=== PATIENT | female | born 1935 | race Caucasian/White ===

== ENCOUNTER 2017-07-29 11:24 | Day surgery (SDC) | payer MEDICARE, OTHER ==
[~2017-07-29 11:24] MED LIST: Lactated Ringers 1,000 ML IV SCH; Sodium Chloride 0.9% 10 ML Syringe FLUSH PRN; Sodium Chloride 0.9% 2.5 ML Syringe FLUSH PRN
--- NOTE | 2017-07-29 12:05 | PCM.PREANE ---
Preanesthetic Assessment - Anesthesia/Transfusion/Family Hx Anesthesia History: Prior Anesthesia Without Reaction Family History of Anesthesia Reaction: No Transfusion History: No Prior Transfusion(s) Intubation History: Unknown - Review of Systems General: No Symptoms Pulmonary: No Symptoms Cardiovascular: No Symptoms Gastrointestinal: Difficulty Swallowing Neurological: No Symptoms Other: Reports: None - Physical Assessment Height: 1.55 m Weight: 90.718 kg ASA Class: 3 Mental Status: Alert & Oriented x3 Airway Class: Mallampati = 2 Dentition: Reports: Stoneridge(s) (multiple on the backteeth) Thyro-Mental Finger Breadths: 3 Mouth Opening Finger Breadths: 3 ROM/Head Extension: Limited/Partial Lungs: Clear to Auscultation, Normal Respiratory Effort Cardiovascular: Regular Rate, Regular Rhythm - Allergies Allergies/Adverse Reactions: Allergies Allergy/AdvReac Type Severity Reaction Status Date / Time Sulfa (Sulfonamide Allergy Hives Verified 07/26/17 09:42 Antibiotics) - Blood Blood Available: No - Anesthesia Plan Pre-Op Medication Ordered: None - Acknowledgements Anesthesia Type Planned: MAC Pt an Appropriate Candidate for the Planned Anesthesia: Yes Alternatives and Risks of Anesthesia Discussed w Pt/Guardian: Yes Pt/Guardian Understands and Agrees with Anesthesia Plan: Yes PreAnesthesia Questionnaire HEENT History: Reports: None Cardiovascular History: Reports: Afib, High Cholesterol, Hypertension, SOB on Exertion, Stents (x1 4 years ago) Respiratory History: Reports: SOB Other Respiratory History: SOB at times Gastrointestinal History: Reports: GERD Genitourinary History: Reports: None 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: Musculoskeletal History: Reports: Back Pain, Chronic, Osteoarthritis, RA Neurological History: Reports: None Psychiatric History: Reports: Depression Endocrine/Metabolic History: Reports: Obesity/BMI 30+ Dermatologic History: Reports: None - Past Surgical History Head Surgeries/Procedures: Reports: None HEENT Surgical History: Reports: Cataract Surgery Cardiovascular Surgical History: Reports: Coronary Artery Stent Female Surgical History: Reports: Tubal Ligation Other Female Surgeries/Procedures: hx rectocele repair Musculoskeletal Surgical History: Reports: Carpal Tunnel, Knee Replacement Other Musculoskeletal Surgeries/Procedures:: hx rt knee replacement Dermatological Surgical History: Reports: Skin Biopsy - SUBSTANCE USE Smoking Status *Q: Former Smoker Tobacco Use Within Last Twelve Months: Cigarettes Second Hand Smoke Exposure: No Days Per Week of Alcohol Use: 0 Recreational Drug Use History: No - HOME MEDS Home Medications: Home Meds Citalopram [Citalopram Hbr] 40 mg PO DAILY 05/29/14 [History] Methotrexate 6 tab PO WEEKLY 05/29/14 [History] Sotalol [Betapace] 120 mg PO DAILY 05/29/14 [History] Spironolactone 50 mg PO DAILY 05/29/14 [History] Aspirin [Lo-Dose Aspirin EC] 81 mg PO DAILY 07/26/17 [History] Calcium Carbonate/Vitamin D3 [Calcium 500 + Vit D Caplet] 1 tab PO DAILY [History] Folic Acid 800 mcg PO DAILY 07/26/17 [History] Furosemide 20 mg PO DAILY 07/26/17 [History] Halobetasol [Halobetasol Propionate] 1 applic TOP BEDTIME PRN 07/26/17 [History] L.acidoph,Paracasei, B.lactis [Probiotic] 1 tab PO DAILY 07/26/17 [History] Losartan [Cozaar] 50 mg PO DAILY 07/26/17 [History] Omeprazole 20 mg PO ASDIRECTED PRN 07/26/17 [History] Ubidecarenone [Coq-10] 100 mg PO DAILY 07/26/17 [History] atorvaSTATin Calcium [Atorvastatin Calcium] 10 mg PO DAILY 07/26/17 [History] - CURRENT (IN HOUSE) MEDS Current Meds: Current Medications Lactated Ringer's (Ringers, Lactated) 1,000 mls @ 125 mls/hr IV ASDIRECTED ANTONIETA Sodium Chloride (Saline Flush) 10 ml FLUSH ASDIRECTED PRN PRN Reason: Keep Vein Open Sodium Chloride (Saline Flush) 2.5 ml FLUSH ASDIRECTED PRN PRN Reason: Keep Vein Open
[2017-07-29] MEDS ORDERED: Propofol 200 MG/20 ML SDV ONE (12:44)
[2017-07-29] MEDS ORDERED: Benzocaine 20% Topical Spray UD MUCMEM ONE (12:44)
[2017-07-29] MEDS ORDERED: fentaNYL 100 MCG/2 ML SDV ONE (13:34)
--- NOTE | 2017-07-29 14:30 | PCM48HPAN ---
Post Anesthesia Note - EVALUATION WITHIN 48HRS OF ANESTHETIC Vital Signs in Normal Range: Yes Patient Participated in Evaluation: Yes Respiratory Function Stable: Yes Airway Patent: Yes Cardiovascular Function Stable: Yes Hydration Status Stable: Yes Pain Control Satisfactory: Yes Nausea and Vomiting Control Satisfactory: Yes Mental Status Recovered: Yes Resp Rate: 15 - COMMENTS/OBSERVATIONS Free Text/Narrative:: no anesthesia problems
--- NOTE | 2017-07-29 15:24 | PCM.OPNOTE ---
- General Post-Op/Procedure Note Date of Surgery/Procedure: 07/29/17 Operative Procedure(s): Diagnostic EGD Findings: Pyloric stenosis, moderate sized hiatal hernia Pre Op Diagnosis: Hiatal hernia, reflux Post-Op Diagnosis: HIatal hernia, pyloric stenosis [place] [facility] [place]geon: Linda Rosas Condition: Good Free Text/Narrative:: Intake & Output 07/29/17 07/29/17 07/29/17 06:59 14:59 22:59 Intake Total 750 Balance 750
[2017-07-29 15:28] VITALS: BP 111/71
--- NOTE | 2017-07-29 21:48 | OR ---
SURGEON: DORCAS BROWN MD DATE OF PROCEDURE: 07/29/2017 PREOPERATIVE DIAGNOSIS: Reflux, hiatal hernia. POSTOPERATIVE DIAGNOSES: 1. Moderate-sized hiatal hernia. 2. Gastric reflux. 3. Pyloric stenosis. ANESTHESIA: MAC. INSTRUMENT USED: Olympus endoscope. EXTENT OF EXAM: To the pylorus. PREPARATION: Good. LIMITATIONS: Difficulty insufflating the stomach and unable to pass the scope past the pylorus. INDICATIONS: The patient is an 82-year-old female with a longstanding history of reflux. She has taken omeprazole for many years and would like to stop taking this. She is here to be evaluated further to see if there is anyway she can stop her medication. She also feels she has a sensation of dysphagia. The patient underwent a preoperative esophagram. This revealed a mild to moderate-sized hiatal hernia as well as mild presbyesophagus. The patient and I discussed the EGD procedure as well as expected perioperative course. We discussed the risks including bleeding or perforation. The patient verbalized understanding and wishes to proceed. PROCEDURE IN DETAIL: The patient was brought into the endoscopy suite and placed in a beach chair position. A time-out was completed verifying the patient's name, age, date of , allergies, and procedure to be performed. Monitored anesthesia care was induced and a bite block was placed in the patient's mouth. Continuous oxygen was provided via nasal cannula throughout the procedure. After adequate sedation was achieved, a well lubricated endoscope was placed in the patient's mouth and advanced under direct visualization of the esophagus. Upon entering the esophagus, I did not note a clear transition from esophageal mucosa to gastric tissue. The scope was advanced under direct visualization until I reached a narrow stricture. This appeared to be the pylorus. I confirmed that the insufflation was on. I then manually insufflated the stomach. The stomach was able to be distended and I was able to clearly identify the pylorus. Despite multiple attempts, I was unable to pass my endoscope past the pylorus. The pylorus itself appeared normal with no evidence of inflammation, scarring, or ulceration. I retroflexed my scope within the antrum of the stomach and noted the patient to have a moderate to large size hiatal hernia. The patient had a large amount of coughing during the case and it was difficult to keep the stomach insufflated as she was losing some of the air through reflux. The scope was straightened out and fully withdrawn while examining the color, texture, anatomy, and integrity of the mucosa of the stomach and esophagus. The gastric mucosa had no evidence of inflammation or ulceration. The scope was then brought up into the chest and a photograph was taken of the stomach that was up in the chest. This appeared normal with no evidence of any ulceration. At about 40 cm from the teeth, the gastroesophageal junction was noted, a photograph was taken. The distal esophageal mucosa appeared normal with no evidence of esophagitis. The remainder of the esophagus was free of pathology. The scope was then removed and the procedure terminated. The patient tolerated the procedure well and was taken to PACU in stable condition. ENDOSCOPIC DIAGNOSES: 1. Gastroesophageal reflux disease. 2. Moderate sized hiatal hernia. 3. Mild pyloric stenosis. RECOMMENDATIONS: We will follow up with the patient in clinic in 2 weeks to discuss her treatment options. WILFRED PALOMINO /[id number]
== END 2017-07-29 15:00 | disposition home or self-care (01) ==
LOC: MW.SDS 11:24
PROVIDERS: ATTEND Surgery
DX: K21.9 Gastro-esophageal reflux disease without esophagitis (principal); K44.9 Diaphragmatic hernia without obstruction or gangrene; K31.1 Adult hypertrophic pyloric stenosis; I25.10 Atherosclerotic heart disease of native coronary artery without angina pectoris; I48.0 Paroxysmal atrial fibrillation; E66.9 Obesity, unspecified; E78.5 Hyperlipidemia, unspecified; M34.9 Systemic sclerosis, unspecified; M06.9 Rheumatoid arthritis, unspecified; M85.80 Other specified disorders of bone density and structure, unspecified site; F32.9 Major depressive disorder, single episode, unspecified; Z79.82 Long term (current) use of aspirin; Z79.899 Other long term (current) drug therapy; Z98.49 Cataract extraction status, unspecified eye; Z96.651 Presence of right artificial knee joint; Z98.51 Tubal ligation status; Z98.890 Other specified postprocedural states; Z88.2 Allergy status to sulfonamides; Z87.891 Personal history of nicotine dependence
CPT/HCPCS: 43235; A9270; J3010; J7120; J2704

== ENCOUNTER 2018-12-08 13:17 | Emergency (ER) | payer MEDICARE, OTHER ==
[2018-12-08] MEDS ORDERED: Sodium Chloride 0.9% 2.5 ML Syringe FLUSH PRN (13:21)
[2018-12-08] MEDS ORDERED: Sodium Chloride 0.9% 10 ML Syringe FLUSH PRN (13:21)
--- NOTE | 2018-12-08 13:43 | EDM.PDOC ---
ED HPI GENERAL MEDICAL PROBLEM - General Chief Complaint: General Stated Complaint: CHEST PAIN Time Seen by Provider: 12/08/18 13:30 Source of Information: Reports: Patient History Limitations: Reports: No Limitations - History of Present Illness INITIAL COMMENTS - FREE TEXT/NARRATIVE: HISTORY AND PHYSICAL: History of present illness: Patient is an 83-year-old female presents to the ED with complaint of chest and back pain. She states she has had the pain for about 4 days, states is better today but when she was at her primary care's office they advised her to come to the ED. She states it does not hurt just sitting here but when she moves certain ways and coughs she has pain in the middle of her chest and in her back and left shoulder. She states she does feel like she is a little short of breath but she's been having nasal drainage and postnasal drip and attributed to this. She denies any worsening cough, fevers, chills, nausea, vomiting, diarrhea, abdominal pain. History significant for CAD with stent placed 8 years ago. Review of systems: As per history of present illness and below otherwise all systems reviewed and negative. Past medical history: As per history of present illness and as reviewed below otherwise noncontributory. Surgical history: As per history of present illness and as reviewed below otherwise noncontributory. Social history: No reported history of drug or alcohol abuse. Family history: As per history of present illness and as reviewed below otherwise noncontributory. Physical exam: General: Patient sitting comfortably in no acute distress and nontoxic appearing HEENT: Atraumatic, normocephalic, pupils reactive, negative for conjunctival pallor or scleral icterus, mucous membranes moist, throat clear, neck supple, nontender, trachea midline. No meningeal signs. Lungs: Clear to auscultation, breath sounds equal bilaterally, chest nontender. Heart: S1S2, regular, negative for clicks, rubs, or overt murmur. Abdomen: Soft, nondistended, nontender. Negative for masses or hepatosplenomegaly. Negative for costovertebral tenderness. No rigidity, rebound , guarding. Pelvis: Stable nontender. Genitourinary: Deferred. Rectal: Deferred. Extremities: Atraumatic, negative for cords or calf pain. Neurovascular unremarkable. Neuro: Awake, alert, oriented. Cranial nerves II through XII unremarkable. Cerebellum unremarkable. Motor and sensory unremarkable throughout. Exam nonfocal. Notes: I had a lengthy discussion with patient about my recommendations to be admitted for observation to rule out ACS with cardiac monitoring and serial troponins especially given her age and cardiac history. Patient declines at this time and understands the risks of this including . Diagnostics: CBC, CMP, troponins, PT/INR, EKG, CXR, UA Therapeutics: [] Prescriptions: Impression: Atypical chest pain Plan: Follow up with primary care provider Return to ED as needed as discussed Definitive disposition and diagnosis as appropriate pending reevaluation and review of above. - Related Data Allergies Allergy/AdvReac Type Severity Reaction Status Date / Time Sulfa (Sulfonamide Allergy Hives Verified 12/08/18 13:29 Antibiotics) Home Meds: Home Meds Citalopram [Citalopram HBr] 40 mg PO DAILY 05/29/14 [History] Methotrexate 6 tab PO WEEKLY 05/29/14 [History] Sotalol [Betapace] 120 mg PO DAILY 05/29/14 [History] Spironolactone 50 mg PO DAILY 05/29/14 [History] Aspirin [Lo-Dose Aspirin EC] 81 mg PO DAILY 07/26/17 [History] Folic Acid 800 mcg PO DAILY 07/26/17 [History] Furosemide 20 mg PO DAILY 07/26/17 [History] Halobetasol [Halobetasol Propionate] 1 applic TOP BEDTIME PRN 07/26/17 [History] Losartan [Cozaar] 25 mg PO DAILY 07/26/17 [History] Omeprazole 20 mg PO ASDIRECTED PRN 07/26/17 [History] Ubidecarenone [Coq-10] 100 mg PO DAILY 07/26/17 [History] atorvaSTATin Calcium [Atorvastatin Calcium] 10 mg PO DAILY 07/26/17 [History] Past Medical History HEENT History: Reports: None Cardiovascular History: Reports: Afib, High Cholesterol, Hypertension, SOB on Exertion, Stents Respiratory History: Reports: SOB Other Respiratory History: SOB at times Gastrointestinal History: Reports: GERD Genitourinary History: Reports: 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: Musculoskeletal History: Reports: Back Pain, Chronic, Osteoarthritis, RA Neurological History: Reports: None Psychiatric History: Reports: Depression Endocrine/Metabolic History: Reports: Obesity/BMI 30+ Dermatologic History: Reports: None - Past Surgical History Head Surgeries/Procedures: Reports: None HEENT Surgical History: Reports: Cataract Surgery Cardiovascular Surgical History: Reports: Coronary Artery Stent Female Surgical History: Reports: Tubal Ligation Other Female Surgeries/Procedures: hx rectocele repair Musculoskeletal Surgical History: Reports: Carpal Tunnel, Knee Replacement Other Musculoskeletal Surgeries/Procedures:: hx rt knee replacement Dermatological Surgical History: Reports: Skin Biopsy Social & Family History - Family History Family Medical History: Noncontributory - Tobacco Use Smoking Status *Q: Never Smoker - Recreational Drug Use Recreational Drug Use: No ED ROS GENERAL - Review of Systems Review Of Systems: ROS reveals no pertinent complaints other than HPI. ED EXAM, GENERAL - Physical Exam Exam: See Below (see dictation) Course - Vital Signs Last Recorded V/S: Last Vital Signs Temp 96.0 F 12/08/18 13:26 Pulse 69 12/08/18 13:26 Resp 18 12/08/18 13:26 BP 146/58 H 12/08/18 13:26 Pulse Ox 94 L 12/08/18 13:26 - Orders/Labs/Meds Orders: Active Orders 24 hr Category Date Time Status Cardiac Monitoring [RC] . DIRECTED Care 12/08/18 13:21 Active EKG Documentation Completion [RC] STAT Care 12/08/18 13:21 Active Sodium Chloride 0.9% [Saline Flush] Med 12/08/18 13:21 Active 10 ml FLUSH ASDIRECTED PRN Sodium Chloride 0.9% [Saline Flush] Med 12/08/18 13:21 Active 2.5 ml FLUSH ASDIRECTED PRN Saline Lock Insert [OM.PC] Stat Oth 12/08/18 13:21 Ordered Medication Orders Sodium Chloride (Saline Flush) 10 ml FLUSH ASDIRECTED PRN PRN Reason: Keep Vein Open Sodium Chloride (Saline Flush) 2.5 ml FLUSH ASDIRECTED PRN PRN Reason: Keep Vein Open Labs: Laboratory Tests 12/08/18 12/08/18 12/08/18 Range/Units 13:34 13:34 13:34 WBC 6.26 (4.0-11.0) K/uL RBC 3.72 L (4.30-5.90) M/uL Hgb 12.1 (12.0-16.0) g/dL Hct 36.4 (36.0-46.0) % MCV 97.8 (80.0-98.0) fL MCH 32.5 H (27.0-32.0) pg MCHC 33.2 (31.0-37.0) g/dL RDW Std Deviation 48.6 (28.0-62.0) fl RDW Coeff of Maryann 14 (11.0-15.0) % Plt Count 232 (150-400) K/uL MPV 9.10 (7.40-12.00) fL Neut % (Auto) 56.4 (48.0-80.0) % Lymph % (Auto) 31.3 (16.0-40.0) % Dickinson % (Auto) 8.3 (0.0-15.0) % Eos % (Auto) 3.0 (0.0-7.0) % Baso % (Auto) 1.0 (0.0-1.5) % Neut # (Auto) 3.5 (1.4-5.7) K/uL Lymph # (Auto) 2.0 (0.6-2.4) K/uL Dickinson # (Auto) 0.5 (0.0-0.8) K/uL Eos # (Auto) 0.2 (0.0-0.7) K/uL Baso # (Auto) 0.1 (0.0-0.1) K/uL Nucleated RBC % 0.0 /100WBC Nucleated RBCs # 0 K/uL INR 0.97 Sodium 139 (136-145) mmol/L Potassium 3.8 (3.5-5.1) mmol/L Chloride 105 (98-107) mmol/L Carbon Dioxide 24.6 (21.0-32.0) mmol/L BUN 21 H (7.0-18.0) mg/dL Creatinine 0.8 (0.6-1.0) mg/dL Est Cr Clr Drug Dosing 40.91 mL/min Estimated GFR (MDRD) > 60.0 ml/min Glucose 114 H (74-106) mg/dL Calcium 9.3 (8.5-10.1) mg/dL Total Bilirubin 0.7 (0.2-1.0) mg/dL AST 20 (15-37) IU/L ALT 20 (14-63) IU/L Alkaline Phosphatase 62 (46-116) U/L Troponin I < 0.050 (0.000-0.056) ng/mL Total Protein 6.5 (6.4-8.2) g/dL Albumin 3.4 (3.4-5.0) g/dL Globulin 3.1 (2.6-4.0) g/dL Albumin/Globulin Ratio 1.1 (0.9-1.6) Urine Color Urine Appearance Urine pH (5.0-8.0) Ur Specific Jewell (1.001-1.035) Urine Protein (NEGATIVE) mg/dL Urine Glucose (UA) (NEGATIVE) mg/dL Urine Ketones (NEGATIVE) mg/dL Urine Occult Blood (NEGATIVE) Urine Nitrite (NEGATIVE) Urine Bilirubin (NEGATIVE) Urine Urobilinogen (<2.0) EU/dL Ur Leukocyte Esterase (NEGATIVE) Urine RBC (0-2/HPF) Urine WBC (0-5/HPF) Ur Epithelial Cells (NONE-FEW) Urine Bacteria (NEGATIVE) 12/08/18 Range/Units 14:30 WBC (4.0-11.0) K/uL RBC (4.30-5.90) M/uL Hgb (12.0-16.0) g/dL Hct (36.0-46.0) % MCV (80.0-98.0) fL MCH (27.0-32.0) pg MCHC (31.0-37.0) g/dL RDW Std Deviation (28.0-62.0) fl RDW Coeff of Maryann (11.0-15.0) % Plt Count (150-400) K/uL MPV (7.40-12.00) fL Neut % (Auto) (48.0-80.0) % Lymph % (Auto) (16.0-40.0) % Dickinson % (Auto) (0.0-15.0) % Eos % (Auto) (0.0-7.0) % Baso % (Auto) (0.0-1.5) % Neut # (Auto) (1.4-5.7) K/uL Lymph # (Auto) (0.6-2.4) K/uL Dickinson # (Auto) (0.0-0.8) K/uL Eos # (Auto) (0.0-0.7) K/uL Baso # (Auto) (0.0-0.1) K/uL Nucleated RBC % /100WBC Nucleated RBCs # K/uL INR Sodium (136-145) mmol/L Potassium (3.5-5.1) mmol/L Chloride (98-107) mmol/L Carbon Dioxide (21.0-32.0) mmol/L BUN (7.0-18.0) mg/dL Creatinine (0.6-1.0) mg/dL Est Cr Clr Drug Dosing mL/min Estimated GFR (MDRD) ml/min Glucose (74-106) mg/dL Calcium (8.5-10.1) mg/dL Total Bilirubin (0.2-1.0) mg/dL AST (15-37) IU/L ALT (14-63) IU/L Alkaline Phosphatase (46-116) U/L Troponin I (0.000-0.056) ng/mL Total Protein (6.4-8.2) g/dL Albumin (3.4-5.0) g/dL Globulin (2.6-4.0) g/dL Albumin/Globulin Ratio (0.9-1.6) Urine Color YELLOW Urine Appearance CLEAR Urine pH 6.5 (5.0-8.0) Ur Specific Jewell <= 1.005 (1.001-1.035) Urine Protein NEGATIVE (NEGATIVE) mg/dL Urine Glucose (UA) NEGATIVE (NEGATIVE) mg/dL Urine Ketones NEGATIVE (NEGATIVE) mg/dL Urine Occult Blood SMALL H (NEGATIVE) Urine Nitrite NEGATIVE (NEGATIVE) Urine Bilirubin NEGATIVE (NEGATIVE) Urine Urobilinogen 0.2 (<2.0) EU/dL Ur Leukocyte Esterase SMALL H (NEGATIVE) Urine RBC 3-5 (0-2/HPF) Urine WBC 3-5 (0-5/HPF) Ur Epithelial Cells OCCASIONAL (NONE-FEW) Urine Bacteria FEW (NEGATIVE) Meds: Medications Generic Name Dose Route Start Last Admin Trade Name Freq PRN Reason Stop Dose Admin Sodium Chloride 10 ml 12/08/18 13:21 Saline Flush FLUSH ASDIRECTED PRN Keep Vein Open Sodium Chloride 2.5 ml 12/08/18 13:21 Saline Flush FLUSH ASDIRECTED PRN Keep Vein Open Departure - Departure Time of Disposition: 15:09 Disposition: Home, Self-Care 01 Condition: Good Clinical Impression: Atypical chest pain - Discharge Information Referrals: Lokesh Johnson MD [Primary Care Provider] - Forms: ED Department Discharge Additional Instructions: The following information is given to patients seen in the emergency department who are being discharged to home. This information is to outline your options for follow-up care. We provide all patients seen in our emergency department with a follow-up referral. The need for follow-up, as well as the timing and circumstances, are variable depending upon the specifics of your emergency department visit. If you don't have a primary care physician on staff, we will provide you with a referral. We always advise you to contact your personal physician following an emergency department visit to inform them of the circumstance of the visit and for follow-up with them and/or the need for any referrals to a consulting specialist. The emergency department will also refer you to a specialist when appropriate. This referral assures that you have the opportunity for follow-up care with a specialist. All of these measure are taken in an effort to provide you with optimal care, which includes your follow-up. Under all circumstances we always encourage you to contact your private physician who remains a resource for coordinating your care. When calling for follow-up care, please make the office aware that this follow-up is from your recent emergency room visit. If for any reason you are refused follow-up, please contact the [facility] Emergency Department at and asked to speak to the emergency department charge nurse. [facility] [address] [place] [id number] [address] Follow up with primary care provider Return to ED as needed as discussed - My Orders Last 24 Hours: My Active Orders 12/08/18 13:21 Cardiac Monitoring [RC] . DIRECTED EKG Documentation Completion [RC] STAT Sodium Chloride 0.9% [Saline Flush] 10 ml FLUSH ASDIRECTED PRN Sodium Chloride 0.9% [Saline Flush] 2.5 ml FLUSH ASDIRECTED PRN Saline Lock Insert [OM.PC] Stat - Assessment/Plan Last 24 Hours: My Active Orders 12/08/18 13:21 Cardiac Monitoring [RC] . DIRECTED EKG Documentation Completion [RC] STAT Sodium Chloride 0.9% [Saline Flush] 10 ml FLUSH ASDIRECTED PRN Sodium Chloride 0.9% [Saline Flush] 2.5 ml FLUSH ASDIRECTED PRN Saline Lock Insert [OM.PC] Stat
[2018-12-08 14:11] LABS: CHLORIDE,CL 105 mmol/L (98-107); SODIUM,NA 139 mmol/L (136-145)
--- NOTE | 2018-12-08 14:37 | CR ---
INDICATION: Chest pain. TECHNIQUE: PA and lateral chest x-ray. IMPRESSION: Chest x-ray 12/04/2015. FINDINGS: Suggestion of increased soft tissue density in the left lower and midline chest was present previously but is more apparent today. This could be a hiatal hernia but is not specific. Mild elevation in eventration right hemidiaphragm medially stable. The heart is somewhat globular in shape and is mildly enlarged. No focal dense infiltrate or consolidation in either lung. The uppermost aspect of the chest is not included on this exam. Chest otherwise unremarkable. Dictated by Jr Martinez MD @ Dec 08 2018 2:35PM Signed by Dr. Jr Martinez @ Dec 08 2018 2:35PM
[2018-12-08 15:21] VITALS: BP 135/54
== END 2018-12-08 15:21 | disposition home or self-care (01) ==
LOC: MW.ED 13:17
DX: R07.89 Other chest pain (principal); E78.00 Pure hypercholesterolemia, unspecified; I48.91 Unspecified atrial fibrillation; F32.9 Major depressive disorder, single episode, unspecified; Z88.2 Allergy status to sulfonamides; Z79.899 Other long term (current) drug therapy; Z79.82 Long term (current) use of aspirin
CPT/HCPCS: 36415; 71045; 71045-26; 80053; 81001; 84484; 85025; 85610; 93005; 99284-25

== ENCOUNTER 2020-11-30 11:20 | Emergency (ER) | payer MEDICARE, OTHER ==
--- NOTE | 2020-11-30 12:46 | EDM.PDOC ---
ED HPI GENERAL MEDICAL PROBLEM - General Chief Complaint: General Stated Complaint: COLD Time Seen by Provider: 11/30/20 12:10 Source of Information: Reports: Patient History Limitations: Reports: No Limitations - History of Present Illness INITIAL COMMENTS - FREE TEXT/NARRATIVE: HISTORY AND PHYSICAL: History of present illness: Patient is an 85-year-old female who presents emergency room today with concern of possible eye infection and sinus infection. Patient states that she has been having sinus pain and pressure for the last 10 days. Patient states that she was seen when her symptoms were started and had tested negative for Covid. Patient states that she does not want any lab work or diagnostics in the emergency room and would just like antibiotics and to be quickly discharged. Patient states she began having grouping of her eyes feeling like her sinuses were backing up into her eyes so came to the emergency room today for evaluation. Patient states that at times, her sinuses do drip down the back of her throat which causes her to cough but states that she does not feel as if she has a cough at baseline. Patient denies any other symptoms or concerns. Patient denies fever, chills, chest pain, shortness of breath, or cough. Denies headache, neck stiff ness, change in vision, syncope, or near syncope. Denies nausea, vomiting, abdominal pain, diarrhea, constipation, or dysuria. Has not noted any blood in urine or stool. Patient has been eating and drinking appropriately. Review of systems: As per history of present illness and below otherwise all systems reviewed and negative. Past medical history: As per history of present illness and as reviewed below otherwise noncontributory. Surgical history: As per history of present illness and as reviewed below otherwise noncontributory. Social history: See social history for further information Family history: As per history of present illness and as reviewed below otherwise noncontribut ory. Physical exam: General: Patient is alert, oriented, and in no acute distress. Patient sitting comfortably on exam table. Vitals stable and reviewed by me HEENT: Bilateral nasal congestion noted with pain to palpation of the maxillary sinuses bilaterally. Visual acuity intact. EOMS intact without pain or difficulty. Negative for corneal opacity, hyphema, or hypopyon. Patient does have some crusting of her bilateral eyelids with mild injection of bilateral sclera. Otherwise, atraumatic, normocephalic, pupils equal and reactive bilaterally, negative for conjunctival pallor or scleral icterus, mucous membranes moist, TMs normal bilaterally, throat clear, neck supple, nontender, trachea midline. No drooling or trismus noted. No meningeal signs. No hot potato voice noted. Lungs: Clear to auscultation, breath sounds equal bilaterally, chest nontender. Heart: S1S2, regular rate and rhythm without overt murmur Abdomen: Soft, nondistended, nontender. Negative for masses or hepatosplen omegaly. Negative for costovertebral tenderness. Pelvis: Stable nontender. Genitourinary: Deferred. Rectal: Deferred. Skin: Intact, warm, dry. No lesions or rashes noted. Extremities: Atraumatic, negative for cords or calf pain. Neurovascular unremarkable. Neuro: Awake, alert, oriented. Cranial nerves II through XII unremarkable. Cerebellum unremarkable. Motor and sensory unremarkable throughout. Exam nonfocal. Notes: Patient is an 85-year-old female who presents emergency room secondary to possible sinus infection as she has had a stuffy/runny nose for 10 days and eye infection today. Upon arrival to the ED, patient is vitally stable and well- appearing on exam. Patient does note to have bilateral bacterial conjunctivitis and pain to palpation of the maxillary sinuses on exam with bilateral nasal congestion. I did offer to obtain basic lab work and a chest x-ray, however, patient declines. All risks versus benefits discussed with patient and expresses understanding. will treat patient for acute maxillary sinusitis and bacterial conjunctivitis. Given patient's severe interaction with methotrexate, will prescribe doxycycline rather than Augmentin. Strict return precautions thoroughly discussed with patient. Discussed importance for follow-up with a primary care provider. Voices understanding and is agreeable to plan of care. Denies any further questions or concerns at this time. Diagnostics: I did offer basic lab work and chest x-ray but patient declines. All risks versus benefits discussed with patient and expresses understanding. Therapeutics: None Prescription: Doxycycline, erythromycin ophthalmic Impression: Acute maxillary sinusitis Bacterial conjunctivitis, bilateral Plan: 1. Take medication as prescribed. You can use Tylenol as directed for pain and discomfort. 2. Follow-up with a primary care provider as discussed. Return to the ED as needed and as discussed. Definitive disposition and diagnosis as appropriate pending reevaluation and review of above. - Related Data Allergies Allergy/AdvReac Type Severity Reaction Status Date / Time Sulfa (Sulfonamide Allergy Hives Verified 11/30/20 12:15 Antibiotics) Home Meds: Home Meds Citalopram [Citalopram HBr] 40 mg PO DAILY 05/29/14 [History] Methotrexate 6 tab PO WEEKLY 05/29/14 [History] Sotalol [Betapace] 120 mg PO DAILY 05/29/14 [History] Spironolactone 50 mg PO DAILY 05/29/14 [History] Aspirin [Lo-Dose Aspirin EC] 81 mg PO DAILY 07/26/17 [History] Folic Acid 800 mcg PO DAILY 07/26/17 [History] Furosemide 20 mg PO DAILY 07/26/17 [History] Halobetasol [Halobetasol Propionate] 1 applic TOP BEDTIME PRN 07/26/17 [History] Losartan [Cozaar] 25 mg PO DAILY 07/26/17 [History] Omeprazole 20 mg PO ASDIRECTED PRN 07/26/17 [History] Ubidecarenone [Coq-10] 100 mg PO DAILY 07/26/17 [History] atorvaSTATin Calcium [Atorvastatin Calcium] 10 mg PO DAILY 07/26/17 [History] Doxycycline [Vibramycin] 100 mg PO BID 10 Days #20 cap 11/30/20 [Rx] Erythromycin Base [Erythromycin 0.5% Ophth Oint] 1 applic OP Q4H 5 Days #1 tube 11/30/20 [Rx] Past Medical History HEENT History: Reports: None Cardiovascular History: Reports: Afib, High Cholesterol, Hypertension, SOB on Exertion, Stents Respiratory History: Reports: SOB Other Respiratory History: SOB at times Gastrointestinal History: Reports: GERD Genitourinary History: Reports: None 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: Musculoskeletal History: Reports: Back Pain, Chronic, Osteoarthritis, RA Neurological History: Reports: None Psychiatric History: Reports: Depression Endocrine/Metabolic History: Reports: Obesity/BMI 30+ Dermatologic History: Reports: None - Infectious Disease History Infectious Disease History: Reports: Chicken Pox - Past Surgical History Head Surgeries/Procedures: Reports: None HEENT Surgical History: Reports: Cataract Surgery Cardiovascular Surgical History: Reports: Coronary Artery Stent Female Surgical History: Reports: Tubal Ligation Other Female Surgeries/Procedures: hx rectocele repair Musculoskeletal Surgical History: Reports: Carpal Tunnel, Knee Replacement Other Musculoskeletal Surgeries/Procedures:: hx rt knee replacement Dermatological Surgical History: Reports: Skin Biopsy Social & Family History - Family History Family Medical History: No Pertinent Family History ED ROS GENERAL - Review of Systems Review Of Systems: Comprehensive ROS is negative, except as noted in HPI. ED EXAM, GENERAL - Physical Exam Exam: See Below (see dictation) Course - Vital Signs Last Recorded V/S: Last Vital Signs Temp 98.0 F 11/30/20 12:10 Pulse 75 11/30/20 12:57 Resp 18 11/30/20 12:10 BP 130/65 11/30/20 12:57 Pulse Ox 99 11/30/20 12:57 Departure - Departure Time of Disposition: 12:45 Disposition: Home, Self-Care 01 Clinical Impression: Acute sinusitis Qualifiers: Sinusitis location: maxillary Recurrence: not specified as recurrent Qualified Code(s): J01.00 - Acute maxillary sinusitis, unspecified Conjunctivitis Qualifiers: Conjunctivitis type: acute Acute conjunctivitis type: bacterial Laterality: bilateral Qualified Code(s): H10.33 - Unspecified acute conjunctivitis, bilateral - Discharge Information Prescriptions: Erythromycin Base [Erythromycin 0.5% Ophth Oint] 1 applic OP Q4H 5 Days #1 tube Doxycycline [Vibramycin] 100 mg PO BID 10 Days #20 cap Instructions: Sinusitis, Adult, [id number], Sinusitis, Adult Referrals: Lokesh Johnson MD [Primary Care Provider] - Forms: ED Department Discharge Additional Instructions: The following information is given to patients seen in the emergency department who are being discharged to home. This information is to outline your options for follow-up care. We provide all patients seen in our emergency department with a follow-up referral. The need for follow-up, as well as the timing and circumstances, are variable depending upon the specifics of your emergency department visit. If you don't have a primary care physician on staff, we will provide you with a referral. We always advise you to contact your personal physician following an emergency department visit to inform them of the circumstance of the visit and for follow-up with them and/or the need for any referrals to a consulting specialist. The emergency department will also refer you to a specialist when appropriate. This referral assures that you have the opportunity for follow-up care with a specialist. All of these measure are taken in an effort to provide you with optimal care, which includes your follow-up. Under all circumstances we always encourage you to contact your private physician who remains a resource for coordinating your care. When calling for follow-up care, please make the office aware that this follow-up is from your recent emergency room visit. If for any reason you are refused follow-up, please contact the [facility] Emergency Department at and asked to speak to the emergency department charge nurse. [facility] [address] [place] [id number] [facility] [address] [place] [id number] 1. Take medication as prescribed. You can use Tylenol as directed for pain and discomfort. 2. Follow-up with a primary care provider as discussed. Return to the ED as needed and as discussed. Sepsis Event Note (ED) - Evaluation Sepsis Screening Result: No Definite Risk
[2020-11-30 12:58] VITALS: BP 130/65; PULSE 75
== END 2020-11-30 12:58 | disposition home or self-care (01) ==
LOC: MW.ED 11:20
DX: J01.00 Acute maxillary sinusitis, unspecified (principal); H10.33 Unspecified acute conjunctivitis, bilateral; I10 Essential (primary) hypertension; E78.00 Pure hypercholesterolemia, unspecified; I48.91 Unspecified atrial fibrillation; M19.90 Unspecified osteoarthritis, unspecified site; K21.9 Gastro-esophageal reflux disease without esophagitis; E66.9 Obesity, unspecified; Z68.37 Body mass index [BMI] 37.0-37.9, adult; Z88.2 Allergy status to sulfonamides; Z79.82 Long term (current) use of aspirin; Z79.899 Other long term (current) drug therapy
CPT/HCPCS: 99283

== ENCOUNTER 2021-01-14 21:44 | Observation (INO) | payer MEDICARE, OTHER ==
[2021-01-14] MEDS ORDERED: Albuterol/Ipratropium 3.0-0.5 MG/3 ML Neb Soln NEB ONE (21:54)
[2021-01-14] MEDS ORDERED: Dexamethasone 10 MG/ML SDV IVPUSH ONE (21:54)
--- NOTE | 2021-01-14 21:58 | EDM.PDOC ---
ED HPI GENERAL MEDICAL PROBLEM - General Chief Complaint: Respiratory Problem Stated Complaint: COUGH, DIFFICULTY BREATHING Time Seen by Provider: 01/14/21 21:50 Source of Information: Reports: Patient History Limitations: Reports: No Limitations - History of Present Illness INITIAL COMMENTS - FREE TEXT/NARRATIVE: Patient is an 85-year-old female who presents today for worsening shortness of breath. States has been feeling sick for the past month. Says she has had increased coughing and when she ever she will she gets more short of breath. She denies any chest pain abdominal pain nausea vomiting fevers chills. She has been trying take these at home as not making it better. Upper Chest Pain Score (Numeric/FACES): 4 - Related Data Allergies Allergy/AdvReac Type Severity Reaction Status Date / Time Sulfa (Sulfonamide Allergy Hives Verified 01/14/21 21:55 Antibiotics) Home Meds: Home Meds Citalopram [Citalopram HBr] 40 mg PO DAILY 05/29/14 [History] Methotrexate 6 tab PO WEEKLY 05/29/14 [History] Sotalol [Betapace] 120 mg PO DAILY 05/29/14 [History] Spironolactone 50 mg PO DAILY 05/29/14 [History] Aspirin [Lo-Dose Aspirin EC] 81 mg PO DAILY 07/26/17 [History] Folic Acid 800 mcg PO DAILY 07/26/17 [History] Furosemide 20 mg PO DAILY 07/26/17 [History] Halobetasol [Halobetasol Propionate] 1 applic TOP BEDTIME PRN 07/26/17 [History] Losartan [Cozaar] 25 mg PO DAILY 07/26/17 [History] Omeprazole 20 mg PO ASDIRECTED PRN 07/26/17 [History] Ubidecarenone [Coq-10] 100 mg PO DAILY 07/26/17 [History] atorvaSTATin Calcium [Atorvastatin Calcium] 10 mg PO DAILY 07/26/17 [History] Doxycycline [Vibramycin] 100 mg PO BID 10 Days #20 cap 11/30/20 [Rx] Erythromycin Base [Erythromycin 0.5% Ophth Oint] 1 applic OP Q4H 5 Days #1 tube 11/30/20 [Rx] Past Medical History HEENT History: Reports: None Cardiovascular History: Reports: Afib, High Cholesterol, Hypertension, SOB on Exertion, Stents Respiratory History: Reports: SOB Other Respiratory History: SOB at times Gastrointestinal History: Reports: GERD Genitourinary History: Reports: 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: Musculoskeletal History: Reports: Back Pain, Chronic, Osteoarthritis, RA Neurological History: Reports: None Psychiatric History: Reports: Depression Endocrine/Metabolic History: Reports: Obesity/BMI 30+ Dermatologic History: Reports: None - Infectious Disease History Infectious Disease History: Reports: Chicken Pox - Past Surgical History Head Surgeries/Procedures: Reports: None HEENT Surgical History: Reports: Cataract Surgery Cardiovascular Surgical History: Reports: Coronary Artery Stent Female Surgical History: Reports: Tubal Ligation Other Female Surgeries/Procedures: hx rectocele repair Musculoskeletal Surgical History: Reports: Carpal Tunnel, Knee Replacement Other Musculoskeletal Surgeries/Procedures:: hx rt knee replacement Dermatological Surgical History: Reports: Skin Biopsy Social & Family History - Family History Family Medical History: No Pertinent Family History ED ROS GENERAL - Review of Systems Review Of Systems: See Below Constitutional: Reports: No Symptoms HEENT: Reports: No Symptoms Respiratory: Reports: Shortness of Breath, Cough Cardiovascular: Reports: No Symptoms Endocrine: Reports: No Symptoms GI/Abdominal: Reports: No Symptoms : Reports: No Symptoms Musculoskeletal: Reports: No Symptoms Skin: Reports: No Symptoms Neurological: Reports: No Symptoms Psychiatric: Reports: No Symptoms Hematologic/Lymphatic: Reports: No Symptoms Immunologic: Reports: No Symptoms ED EXAM, GENERAL - Physical Exam Exam: See Below Exam Limited By: No Limitations General Appearance: Alert, WD/WN, No Apparent Distress Eye Exam: Bilateral Eye: EOMI Ears: Normal External Exam Nose: Normal Inspection Neck: Normal Inspection Respiratory/Chest: No Respiratory Distress, Rhonchi Cardiovascular: Normal Peripheral Pulses, Regular Rate, Rhythm GI/Abdominal: Normal Bowel Sounds, Soft, Non-Tender Extremities: Normal Inspection Neurological: Alert, Oriented #1 Interpretation EKG Date: 01/14/21 Time: 21:53 Rhythm: Other (sinus tach) Rate (Beats/Min): 102 ST-T: Normal Course - Vital Signs Last Recorded V/S: Last Vital Signs Temp 97.3 F 01/14/21 21:51 Pulse 103 H 01/15/21 00:29 Resp 18 01/14/21 23:20 BP 132/60 01/14/21 23:52 Pulse Ox 92 L 01/15/21 00:29 - Orders/Labs/Meds Orders: Active Orders 24 hr Category Date Time Status Patient Status [ADT] Routine ADT 01/15/21 01:07 Ordered RT Aerosol Therapy [RC] ASDIRECTED Care 01/14/21 21:54 Active Chest 1V Frontal [CR] Stat Exams 01/14/21 21:54 Taken Labs: Laboratory Tests 01/14/21 01/14/21 01/14/21 Range/Units 22:00 22:02 22:02 WBC 11.21 H (4.0-11.0) K/uL RBC 3.51 L (4.30-5.90) M/uL Hgb 11.8 L (12.0-16.0) g/dL Hct 34.8 L (36.0-46.0) % MCV 99.1 H (80.0-98.0) fL MCH 33.6 H (27.0-32.0) pg MCHC 33.9 (31.0-37.0) g/dL RDW Std Deviation 50.8 (28.0-62.0) fl RDW Coeff of Maryann 15 (11.0-15.0) % Plt Count 280 (150-400) K/uL MPV 8.70 (7.40-12.00) fL Neut % (Auto) 67.9 (48.0-80.0) % Lymph % (Auto) 18.4 (16.0-40.0) % Tama % (Auto) 12.0 (0.0-15.0) % Eos % (Auto) 1.2 (0.0-7.0) % Baso % (Auto) 0.5 (0.0-1.5) % Neut # (Auto) 7.6 H (1.4-5.7) K/uL Lymph # (Auto) 2.1 (0.6-2.4) K/uL Tama # (Auto) 1.4 H (0.0-0.8) K/uL Eos # (Auto) 0.1 (0.0-0.7) K/uL Baso # (Auto) 0.1 (0.0-0.1) K/uL Nucleated RBC % 0.0 /100WBC Nucleated RBCs # 0 K/uL Sodium 132 L (136-145) mmol/L Potassium 3.7 (3.5-5.1) mmol/L Chloride 95 L (98-107) mmol/L Carbon Dioxide 22.6 (21.0-32.0) mmol/L BUN 12 (7.0-18.0) mg/dL Creatinine 0.7 (0.6-1.0) mg/dL Est Cr Clr Drug Dosing 45.14 mL/min Estimated GFR (MDRD) > 60.0 ml/min Glucose 133 H (74-106) mg/dL Calcium 8.0 L (8.5-10.1) mg/dL Total Bilirubin 0.9 (0.2-1.0) mg/dL AST 28 (15-37) IU/L ALT 27 (14-63) IU/L Alkaline Phosphatase 68 (46-116) U/L Creatine Kinase 123 (26-308) U/L Troponin I < 0.050 (0.000-0.056) ng/mL Total Protein 6.9 (6.4-8.2) g/dL Albumin 3.5 (3.4-5.0) g/dL Globulin 3.4 (2.6-4.0) g/dL Albumin/Globulin Ratio 1.0 (0.9-1.6) Lipase 84 (73-393) U/L SARS-CoV-2 RNA (ENEIDA) NEGATIVE (NEGATIVE) Meds: Medications Discontinued Medications Generic Name Dose Route Start Last Admin Trade Name Heather PRN Reason Stop Dose Admin Albuterol/Ipratropium 3 ml 01/14/21 21:54 01/14/21 22:02 Albuterol/Ipratropium 3.0-0.5 Mg/3 Ml Neb Soln NEB 01/14/21 21:55 3 ml ONETIME ONE Administration Dexamethasone 10 mg 01/14/21 21:54 01/14/21 22:02 Dexamethasone 10 Mg/Ml Sdv IVPUSH 01/14/21 21:55 10 mg ONETIME ONE Administration Iopamidol 100 ml 01/15/21 00:32 01/15/21 00:33 Iopamidol 755 Mg/Ml 500 Ml Multipack Bottle IVPUSH 01/15/21 00:33 100 ml ONETIME STA Administration - Re-Assessments/Exams Free Text/Narrative Re-Assessment/Exam: 01/15/21 01:08 Patient remains hypoxic she is on 2 L satting in the low to mid 90s we cannot wean her off oxygen. Due to this her CT PE is negative no signs of was causing hypoxia we will admit her to the hospital for observation. Departure - Departure Time of Disposition: 01:08 Disposition: Refer to Observation Condition: Good Clinical Impression: Hypoxia - Discharge Information Referrals: PCP,None [Primary Care Provider] - Forms: ED Department Discharge Critical Care Note - Critical Care Note Total Time (mins): 45 Comments: Critical Care Procedure Note Authorized and Performed by: Dr. Medina Total critical care time: Approximately Due to a high probability of clinically significant, life threatening deterioration, the patient required my highest level of preparedness to intervene emergently and I personally spent this critical care time directly and personally managing the patient. This critical care time included obtaining a history; examining the patient; pulse oximetry; ordering and review of studies; arranging urgent treatment with development of a management plan; evaluation of patient's response to treatment; frequent reassessment; and, discussions with other providers. This critical care time was performed to assess and manage the high probability of imminent, life-threatening deterioration that could result in multi-organ failure. It was exclusive of separately billable procedures and treating other patients and teaching time. Sepsis Event Note (ED) - Focused Exam Vital Signs: Vital Signs Temp Pulse Resp BP Pulse Ox 01/15/21 00:29 103 H 92 L 01/14/21 23:52 92 132/60 93 L 01/14/21 23:20 87 18 119/53 L 97 01/14/21 21:51 97.3 F 108 H 26 H 83 L - My Orders Last 24 Hours: My Active Orders 01/14/21 21:54 RT Aerosol Therapy [RC] ASDIRECTED Chest 1V Frontal [CR] Stat 01/15/21 01:07 Patient Status [ADT] Routine - Assessment/Plan Last 24 Hours: My Active Orders 01/14/21 21:54 RT Aerosol Therapy [RC] ASDIRECTED Chest 1V Frontal [CR] Stat 01/15/21 01:07 Patient Status [ADT] Routine Plan: Patient is a 85-year-old female who presents today for worsening shortness of breath. Patient came in setting 80% on room air placed on a nonrebreather at a low dose will place patient on nasal cannula and she improved close to 100%. Will get labs x-ray EKG and reassess.
[2021-01-14 22:36] LABS: BLOOD UREA NITROGEN,BUN 12 mg/dL (7.0-18.0); CARBON DIOXIDE,CO2 22.6 mmol/L (21.0-32.0); CHLORIDE,CL 95 mmol/L (98-107); GLUCOSE RANDOM 133 mg/dL (74-106); LIPASE 84 U/L (73-393); POTASSIUM,K 3.7 mmol/L (3.5-5.1); SODIUM,NA 132 mmol/L (136-145)
[2021-01-15] MEDS ORDERED: Iopamidol 755 MG/ML 500 ML Multipack Bottle IVPUSH STA (00:32)
--- NOTE | 2021-01-15 00:47 | CT ---
INDICATION: Hypoxia. COVID-19 negative. COMPARISON: Portable chest from yesterday. TECHNIQUE: CT examination of the chest was performed with the uneventful intravenous administration of 100 cc of Isovue 370. while 1.0 and 1.5 mm thick axial sections were obtained through the pulmonary arteries. Please note that all CT scans at this facility use dose modulation, iterative reconstruction, and/or weight-based dosing when appropriate to reduce radiation dose to as low as reasonably achievable. FINDINGS: : There is no sign of pulmonary embolism, with normal enhancement and branching of the pulmonary arteries. There is moderate linear and patchy density in the anterior-medial right middle lobe, consistent with scarring. There is a mild right greater than left posterior apical pleural thickening and scarring. There is mild linear scarring in the lateral left lung base. There is mild patchy density in the anterior inferior left lower lobe. There is no sign of mediastinal or hilar mass or adenopathy. There is moderate LAD and LCX coronary calcification. There is minimal RCA coronary calcification. There is age appropriate appearance of the thoracic aorta and ascending great vessels. There is no sign of supraclavicular or axillary mass or adenopathy. There is mild enlargement of the right lobe of the thyroid with low density, raising the possibility of a thyroid nodule. The left lobe is normal in appearance. The possible nodule can be further evaluated with ultrasound on a nonemergent basis, if clinically significant. The visualized superior liver, spleen, pancreas, kidneys, and adrenals are normal in appearance. There is a moderate sized hiatal hernia. There is mild scoliosis of the lumbar spine convex towards the right. There is mild, age-appropriate hypertrophic changes throughout the thoracic spine. IMPRESSION: No sign of pulmonary embolism. Areas of scarring scattered throughout the chest as described above. Moderate sized hiatal hernia. Low-density nodule enlarging the right lobe of the thyroid, which can be further evaluated with ultrasound on a nonemergent basis, if clinically indicated. Please note that all CT scans at this facility use dose modulation, iterative reconstruction, and/or weight-based dosing when appropriate to reduce radiation dose to as low as reasonably achievable. Dictated by Rubén Weir MD @ 01/15/2021 12:45:52 AM (Electronically Signed)
[2021-01-15] MEDS ORDERED: Albuterol/Ipratropium 3.0-0.5 MG/3 ML Neb Soln NEB ONE (01:30)
[2021-01-15] MEDS ORDERED: Albuterol/Ipratropium 3.0-0.5 MG/3 ML Neb Soln ONE (06:12)
[2021-01-15] MEDS ORDERED: Albuterol/Ipratropium 4 GM Inhalation Spray INH ONE (06:12)
[2021-01-15] MEDS ORDERED: Albuterol/Ipratropium 3.0-0.5 MG/3 ML Neb Soln INH PRN (06:36)
[2021-01-15] MEDS ORDERED: Acetaminophen 325 MG Tab PO PRN (06:37)
[2021-01-15] MEDS ORDERED: Sodium Chloride 0.9% 10 ML Syringe FLUSH PRN (06:38)
[2021-01-15 07:33] LABS: BLOOD UREA NITROGEN,BUN 15 mg/dL (7.0-18.0); CARBON DIOXIDE,CO2 24.2 mmol/L (21.0-32.0); CHLORIDE,CL 99 mmol/L (98-107); GLUCOSE RANDOM 261 mg/dL (74-106); POTASSIUM,K 3.6 mmol/L (3.5-5.1); SODIUM,NA 135 mmol/L (136-145)
--- NOTE | 2021-01-15 08:20 | PCM.HP.2 ---
H&P History of Present Illness - General Date of Service: 01/15/21 Admit Problem/Dx: Admission Diagnosis/Problem Admission Diagnosis/Problem Hypoxia - History of Present Illness Initial Comments - Free Text/Narative: 85-year-old female with past medical history of A. fib treated with sotalol, high cholesterol, hypertension, shortness of breath on exertion, stents, GERD, osteoarthritis presents emergency department overnight with complaint of shortness of breath. Patient also states that she has been feeling sick for the past month, has bouts of dizziness, states left ear pain, decreased hearing from the left ear. Patient states that she is scheduled to see her primary care physician this Wednesday and discuss referral to ENT. Patient also states that she has recently been having mild to moderate cough which exacerbates her shortness of breath. Patient has a past history of smoking but said she quit in 1973. Patient never been diagnosed with COPD, asthma. At presentation patient denies chest pain, states shortness of breath significantly improved after DuoNeb treatment, denies fever, chills, nausea, vomiting, abdominal pain, diarrhea. States mild loss of hearing in left ear, mild left ear pain,, sinus pressure. Laboratory on admission white blood cell count 6.9, hemoglobin 11.1, hematocrit 32.8, platelet count 257, sodium 135, potassium 3.6, BUN 10, creatinine 0.6, AST 20, ALT 27, troponin negative x1. Patient COVID-[address] angio impression, no sign of pulmonary muscle, moderate linear and patchy density in the anterior medial right middle lobe consistent with scarring. Low- density nodule enlarged right lobe of the thyroid which can be further evaluated with ultrasound on a nonemergent basis if clinically indicated. DISCHARGE: Patient was on room air during admission on the medical floor. Patient was satting at 93% at rest while ambulating dipped down to 89% but quickly recovered within 60 seconds to baseline 93%. Low-density nodule enlarged right lobe of the thyroid which can be further evaluated with ultrasound on a nonemergent basis if clinically indicated. Patient discharged on the same day of admission in home in stable condition, patient is follow-up with primary care provider this Wednesday. Patient was also prescribed albuterol inhaler on discharge. Per CT angio, a right lobe thyroid nodule was identified, patient informed to discuss with primary care physician for further ultrasound if needed. Upper Chest Pain Score (Numeric/FACES): 4 - Related Data Allergies/Adverse Reactions: Allergies Allergy/AdvReac Type Severity Reaction Status Date / Time Sulfa (Sulfonamide Allergy Hives Verified 01/14/21 21:55 Antibiotics) Home Medications: Home Meds Citalopram [Citalopram HBr] 40 mg PO DAILY 05/29/14 [History] Methotrexate 15 mg PO WEEKLY 05/29/14 [History] Sotalol [Betapace] 120 mg PO BID 05/29/14 [History] Spironolactone 50 mg PO DAILY 05/29/14 [History] Aspirin [Lo-Dose Aspirin EC] 81 mg PO DAILY 07/26/17 [History] Furosemide 40 mg PO DAILY 07/26/17 [History] Losartan [Cozaar] 25 mg PO DAILY 07/26/17 [History] Omeprazole 20 mg PO ASDIRECTED PRN 07/26/17 [History] atorvaSTATin Calcium [Atorvastatin Calcium] 10 mg PO DAILY 07/26/17 [History] Albuterol Sulfate [Albuterol Sulfate HFA] 8.5 gm INH Q4H PRN #1 ea 01/15/21 [Rx] Folic Acid 1 mg PO DAILY 01/15/21 [History] Past Medical History HEENT History: Reports: None Cardiovascular History: Reports: Afib, High Cholesterol, Hypertension, SOB on Exertion, Stents Respiratory History: Reports: SOB Other Respiratory History: SOB at times Gastrointestinal History: Reports: GERD Genitourinary History: Reports: None [employer] History: Reports: Musculoskeletal History: Reports: Back Pain, Chronic, Osteoarthritis, RA Neurological History: Reports: None Psychiatric History: Reports: Depression Endocrine/Metabolic History: Reports: Obesity/BMI 30+ Dermatologic History: Reports: None - Infectious Disease History Infectious Disease History: Reports: Chicken Pox - Past Surgical History Head Surgeries/Procedures: Reports: None HEENT Surgical History: Reports: Cataract Surgery Cardiovascular Surgical History: Reports: Coronary Artery Stent Female Surgical History: Reports: Tubal Ligation Other Female Surgeries/Procedures: hx rectocele repair Musculoskeletal Surgical History: Reports: Carpal Tunnel, Knee Replacement Other Musculoskeletal Surgeries/Procedures:: hx rt knee replacement Dermatological Surgical History: Reports: Skin Biopsy Social & Family History - Family History Family Medical History: No Pertinent Family History H&P Review of Systems - Review of Systems: Review Of Systems: See Below General: Denies: Fever, Chills, Weakness, Fatigue HEENT: Reports: Ear Pain, Sinus Congestion Pulmonary: Denies: Shortness of Breath, Cough Cardiovascular: Denies: Dyspnea on Exertion, Edema Gastrointestinal: Denies: Abdominal Pain Neurological: Denies: Confusion, Dizziness, Headache Exam - Exam Exam: See Below - Vital Signs Vital Signs: Last Vital Signs Temp 97.3 F 01/14/21 21:51 Pulse 102 H 01/15/21 01:32 Resp 20 01/15/21 01:32 BP 139/64 01/15/21 01:32 Pulse Ox 95 01/15/21 01:32 Weight: 195 lb - Exam General: Alert, Oriented HEENT: TMs Clear. No: Hearing Intact (decreased in left ear), Rhinitis Lungs: Clear to Auscultation, Normal Respiratory Effort Cardiovascular: Regular Rate, Irregular Rhythm GI/Abdominal Exam: Soft - Patient Data Lab Results Last 24 hrs: Laboratory Results - last 24 hr 01/14/21 01/14/21 01/14/21 Range/Units 22:00 22:02 22:02 WBC 11.21 H (4.0-11.0) K/uL RBC 3.51 L (4.30-5.90) M/uL Hgb 11.8 L (12.0-16.0) g/dL Hct 34.8 L (36.0-46.0) % MCV 99.1 H (80.0-98.0) fL MCH 33.6 H (27.0-32.0) pg MCHC 33.9 (31.0-37.0) g/dL RDW Std Deviation 50.8 (28.0-62.0) fl RDW Coeff of Maryann 15 (11.0-15.0) % Plt Count 280 (150-400) K/uL MPV 8.70 (7.40-12.00) fL Neut % (Auto) 67.9 (48.0-80.0) % Lymph % (Auto) 18.4 (16.0-40.0) % Love % (Auto) 12.0 (0.0-15.0) % Eos % (Auto) 1.2 (0.0-7.0) % Baso % (Auto) 0.5 (0.0-1.5) % Neut # (Auto) 7.6 H (1.4-5.7) K/uL Lymph # (Auto) 2.1 (0.6-2.4) K/uL Love # (Auto) 1.4 H (0.0-0.8) K/uL Eos # (Auto) 0.1 (0.0-0.7) K/uL Baso # (Auto) 0.1 (0.0-0.1) K/uL Nucleated RBC % 0.0 /100WBC Nucleated RBCs # 0 K/uL Sodium 132 L (136-145) mmol/L Potassium 3.7 (3.5-5.1) mmol/L Chloride 95 L (98-107) mmol/L Carbon Dioxide 22.6 (21.0-32.0) mmol/L BUN 12 (7.0-18.0) mg/dL Creatinine 0.7 (0.6-1.0) mg/dL Est Cr Clr Drug Dosing 45.14 mL/min Estimated GFR (MDRD) > 60.0 ml/min Glucose 133 H (74-106) mg/dL Calcium 8.0 L (8.5-10.1) mg/dL Total Bilirubin 0.9 (0.2-1.0) mg/dL AST 28 (15-37) IU/L ALT 27 (14-63) IU/L Alkaline Phosphatase 68 (46-116) U/L Creatine Kinase 123 (26-308) U/L Troponin I < 0.050 (0.000-0.056) ng/mL Total Protein 6.9 (6.4-8.2) g/dL Albumin 3.5 (3.4-5.0) g/dL Globulin 3.4 (2.6-4.0) g/dL Albumin/Globulin Ratio 1.0 (0.9-1.6) Lipase 84 (73-393) U/L SARS-CoV-2 RNA (ENEIDA) NEGATIVE (NEGATIVE) 01/15/21 01/15/21 Range/Units 05:51 05:51 WBC 6.96 (4.0-11.0) K/uL RBC 3.29 L (4.30-5.90) M/uL Hgb 11.1 L (12.0-16.0) g/dL Hct 32.8 L (36.0-46.0) % MCV 99.7 H (80.0-98.0) fL MCH 33.7 H (27.0-32.0) pg MCHC 33.8 (31.0-37.0) g/dL RDW Std Deviation 51.5 (28.0-62.0) fl RDW Coeff of Maryann 15 (11.0-15.0) % Plt Count 257 (150-400) K/uL MPV 8.90 (7.40-12.00) fL Neut % (Auto) 85.7 H (48.0-80.0) % Lymph % (Auto) 11.4 L (16.0-40.0) % Love % (Auto) 2.6 (0.0-15.0) % Eos % (Auto) 0.0 (0.0-7.0) % Baso % (Auto) 0.3 (0.0-1.5) % Neut # (Auto) 6.0 H (1.4-5.7) K/uL Lymph # (Auto) 0.8 (0.6-2.4) K/uL Love # (Auto) 0.2 (0.0-0.8) K/uL Eos # (Auto) 0.0 (0.0-0.7) K/uL Baso # (Auto) 0.0 (0.0-0.1) K/uL Nucleated RBC % 0.0 /100WBC Nucleated RBCs # 0 K/uL Sodium 135 L (136-145) mmol/L Potassium 3.6 (3.5-5.1) mmol/L Chloride 99 (98-107) mmol/L Carbon Dioxide 24.2 (21.0-32.0) mmol/L BUN 15 (7.0-18.0) mg/dL Creatinine 0.6 (0.6-1.0) mg/dL Est Cr Clr Drug Dosing 52.67 mL/min Estimated GFR (MDRD) > 60.0 ml/min Glucose 261 H (74-106) mg/dL Calcium 8.2 L (8.5-10.1) mg/dL Total Bilirubin (0.2-1.0) mg/dL AST (15-37) IU/L ALT (14-63) IU/L Alkaline Phosphatase (46-116) U/L Creatine Kinase (26-308) U/L Troponin I (0.000-0.056) ng/mL Total Protein (6.4-8.2) g/dL Albumin (3.4-5.0) g/dL Globulin (2.6-4.0) g/dL Albumin/Globulin Ratio (0.9-1.6) Lipase (73-393) U/L SARS-CoV-2 RNA (ENEIDA) (NEGATIVE) Result Diagrams: 01/15/21 05:51 01/15/21 05:51 Sepsis Event Note - Focused Exam Vital Signs: Vital Signs Temp Pulse Resp BP Pulse Ox 01/15/21 01:32 102 H 20 139/64 95 01/15/21 00:29 103 H 92 L 01/14/21 23:52 92 132/60 93 L 01/14/21 23:20 87 18 119/53 L 97 01/14/21 21:51 97.3 F 108 H 26 H 83 L - Problem List (1) Atrial fibrillation SNOMED Code(s): 48614870 ICD Code: I48.91 - UNSPECIFIED ATRIAL FIBRILLATION Status: Acute (2) Acute sinusitis SNOMED Code(s): 40426607 ICD Code: J01.90 - ACUTE SINUSITIS, UNSPECIFIED Status: Acute Qualifiers: Sinusitis location: maxillary Recurrence: not specified as recurrent Qualified Code(s): J01.00 - Acute maxillary sinusitis, unspecified (3) GERD (gastroesophageal reflux disease) SNOMED Code(s): 161472045 ICD Code: K21.9 - GASTRO-ESOPHAGEAL REFLUX DISEASE WITHOUT ESOPHAGITIS Status: Acute (4) Hypoxia SNOMED Code(s): 818881917 ICD Code: R09.02 - HYPOXEMIA Status: Acute Problem List Initiated/Reviewed/Updated: Yes Orders Last 24hrs: Active Orders 24 hr Category Date Time Status Patient Status [ADT] Routine ADT 01/15/21 01:07 Active RT Aerosol Therapy [RC] ASDIRECTED Care 01/14/21 21:54 Active RT Aerosol Therapy [RC] ASDIRECTED Care 01/15/21 01:30 Active Telemetry Monitoring [Cardiac Monitoring] [RC] Q8H Care 01/15/21 01:46 Active Chest 1V Frontal [CR] Stat Exams 01/14/21 21:54 Taken Acetaminophen [TylenoL] Med 01/15/21 06:37 Active 325 mg PO Q4H PRN Albuterol/Ipratropium [Combivent Respimat] Med 01/15/21 10:00 Active 0 gm INH Q4HRRT Albuterol/Ipratropium [DuoNeb 3.0-0.5 MG/3 ML] Med 01/15/21 06:36 Active 3 ml INH Q4H PRN Sodium Chloride 0.9% [Saline Flush] Med 01/15/21 06:38 Active 10 ml FLUSH ASDIRECTED PRN Medication Orders Acetaminophen (Acetaminophen 325 Mg Tab) 325 mg PO Q4H PRN PRN Reason: Pain Albuterol/Ipratropium (Albuterol/Ipratropium 3.0-0.5 Mg/3 Ml Neb Soln) 3 ml INH Q4H PRN PRN Reason: Dyspnea Albuterol/Ipratropium (Albuterol/Ipratropium 4 Gm Inhalation [place]) 0 gm INH Q4HRRT ANTONIETA Sodium Chloride (Sodium Chloride 0.9% 10 Ml Syringe) 10 ml FLUSH ASDIRECTED PRN PRN Reason: IV LINE PATENCY Assessment/Plan Comment:: Shortness of breath: Oxygen support as needed, patient currently on room air satting at 93% O2 saturation, DuoNeb as needed, regular diet Consult physical therapy Atrial fibrillationcontinue sotalol
--- NOTE | 2021-01-15 09:56 | CR ---
EXAM DATE: 01/15/21 PATIENT'S AGE: 85 Patient: NELLY WALTON Facility: [facility] Site Site : [id number] Study: XRay-Chest 1V-01/14/2021 11:11:40 PM Ordering Physician: NADIR SUN MD Final Report: INDICATION: Hypoxia TECHNIQUE: Chest radiograph 1 view on 2 films COMPARISON: 12/08/2018 FINDINGS: The sensitivity and specificity of the exam are moderately limited by the patient`s body habitus. Mediastinum: The mediastinum is normal in appearance. The heart silhouette is normal in size and morphology. Lung: Cluster of nodular opacities are present in the right lung base without significant change. Hyperinflation of both lungs are present and may be due to underlying pulmonary emphysema. No sign of pleural effusion seen. No pneumothorax is identified. Bone and Soft tissue: Unremarkable for age. IMPRESSION: 1. Hyperinflation of both lungs are present and may be due to underlying pulmonary emphysema. Dictated by Gary Nair MD @ 01/14/2021 11:20:04 PM Dictated by: Gary Nair MD @ 01/14/2021 23:20:07 Signed by: Gary Nair MD @01/14/2021 11:20:07 PM (Electronic Signature) Report Signed by Proxy. AMENA
[2021-01-15 10:00] VITALS: BP 127/56; PULSE 94
[2021-01-15] MEDS ORDERED: Albuterol/Ipratropium 4 GM Inhalation Spray INH SCH (10:00)
== END 2021-01-15 12:50 | disposition home or self-care (01) ==
LOC: MW.ED 21:44 → MW.MS 01-15 01:07
PROVIDERS: ADMIT Student in an Organized Health Care Education/Training Program; ATTEND Student in an Organized Health Care Education/Training Program
DX: R06.02 Shortness of breath (principal); E78.00 Pure hypercholesterolemia, unspecified; I10 Essential (primary) hypertension; K21.9 Gastro-esophageal reflux disease without esophagitis; J44.9 Chronic obstructive pulmonary disease, unspecified; I48.91 Unspecified atrial fibrillation; E66.9 Obesity, unspecified; R09.02 Hypoxemia; Z88.2 Allergy status to sulfonamides; Z79.899 Other long term (current) drug therapy; Z79.82 Long term (current) use of aspirin; Z98.890 Other specified postprocedural states; Z20.822 Contact with and (suspected) exposure to COVID-19
CPT/HCPCS: 36415; 71045; 71275; 80048; 80053; 82550; 83690; 84484; 85025; 93005; 94640; 96374; 97161; 99285; A9270; J1100; Q9967; U0002; J7620-GY

== ENCOUNTER 2021-01-24 18:54 | Inpatient (IN) | payer MEDICARE, OTHER ==
[2021-01-24] MEDS ORDERED: Albuterol/Ipratropium 3.0-0.5 MG/3 ML Neb Soln NEB ONE (19:19)
[2021-01-24] MEDS ORDERED: Dexamethasone 10 MG/ML SDV IVPUSH ONE (19:19)
[2021-01-24] MEDS ORDERED: Sodium Chloride 0.9% 10 ML Syringe FLUSH PRN (19:19)
[2021-01-24] MEDS ORDERED: Sodium Chloride 0.9% 2.5 ML Syringe FLUSH PRN (19:19)
[2021-01-24] MEDS ORDERED: Ondansetron 4 MG/2 ML SDV IVPUSH ONE (19:29)
--- NOTE | 2021-01-24 19:48 | EDM.PDOC ---
ED HPI GENERAL MEDICAL PROBLEM - General Chief Complaint: Respiratory Problem Stated Complaint: TROUBLE BREATHING AND RT FOOT HURTS ON TOP OF IT Time Seen by Provider: 01/24/21 19:09 - History of Present Illness INITIAL COMMENTS - FREE TEXT/NARRATIVE: HISTORY AND PHYSICAL: History of present illness: This is an 85-year-old female with a history significant for atrial fibrillation, hypertension, CAD status post stents, GERD, CHF, emphysema osteoarthritis, who presents ER today complaining of increasing shortness of breath, increasing yellow productive cough, and increasing pain to her right foot. Patient had a recent admission to the hospital for shortness of breath that resolved after nebulized treatments. During her evaluation on her last visit she had a CTA of her chest which not reveal any evidence of blood clots however did reveal that she did have fibrosis and emphysematous changes. Patient presents ER today secondary to worsening shortness of breath, generalized malaise and weakness, tactile fevers, and worsening cough. Patient denies any chest pain or pressure. Patient reports she does have nausea with occasional episodes of emesis. Patient reports that she has had decreased p.o. intake over the last 1 to 2 days. Patient denies any dysuria, frequency, urgency. Patient denies any abdominal pain or discomfort. In reviewing her records she was Covid negative during her last admission. Patient reports that she has pain to her right foot and some swelling on her right foot which is new. She reports that she has pain when she ambulates but denies any recent fall or trauma. Review of systems: As per history of present illness and below otherwise all systems reviewed and negative. Past medical history: As per history of present illness and as reviewed below otherwise noncontributory. Surgical history: As per history of present illness and as reviewed below otherwise noncontributory. Social history: No reported history of drug abuse. Family history: As per history of present illness and as reviewed below otherwise noncontributory. Physical exam: This patient was seen and evaluated during the 2019 SARS-CoV-2 novel coronavirus pandemic period. Community viral transmission is ongoing at time of this encounter and the emergency department is operating under pandemic response procedures. Constitutional: Patient is oriented to person, place, and time. Appears well-developed and well-nourished. No distress. HEENT: Dry mucous membranes Head: Normocephalic and atraumatic Eyes: Right eye exhibits no discharge. Left eye exhibits no discharge. No scleral icterus Neck: Normal range of motion. No tracheal deviation present. Cardiovascular: Normal rate and regular rhythm. Tachycardic with a heart rate of 105 Pulmonary: Effort normal, no respiratory distress. Coarse rhonchi throughout her lungs with wheezing Abdominal: No distention Musculoskeletal: Normal range of motion. Patient was tenderness to palpation to her right foot. Patient has by lateral 2+ bipedal edema which she reports is chronic for her. Neurologic: Alert and oriented to person, place and time. Skin: [place], warm and dry. Psychiatric: Normal mood and affect. Behavior is normal. Judgment and thought content normal. Nursing note and vital signs have been reviewed Diagnostics: Chest x-ray: Consistent with right middle and right lower lobe pneumonia Covid negative Therapeutics: DuoNeb x3 Solu-Medrol NSS x1 L Vancomycin/Zosyn Assessment and plan: This is a 85-year-old female who presents to the ER today secondary to increasing shortness of breath. Upon arrival to the ED she was noted to be febrile with a temperature of 102 and hypoxic with a pulse ox of 88% on room air. Patient reports that she does not utilize home oxygen at home. Patient's presentation is concerning for sepsis. 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 Patient's Covid test is negative. Patient does have a markedly elevated WBC count although her lactic acid levels were not elevated. Given her presentation, the patient will need to be admitted for hydration, IV antibiotics and monitoring for possible sepsis. Patient has been given DuoNeb x3 in the ED with some improvement in her symp toms. Critical Care: The high probability of sudden, clinically significant deterioration in the patient's condition required the highest level of my preparedness to intervene urgently. The services I provided to this patient were to treat and/or prevent clinically significant deterioration. Services included the following: chart data review, reviewing nursing notes and/or old charts, documentation time, pmo consultant collaboration regarding findings and treatment options, medication orders and management, direct patient care, vital sign assessments and ordering, interpreting and reviewing diagnostic studies/lab tests. Aggregate critical care time includes only time during which I was engaged inwork directly related to the patient's care, as described above, whether at the bedside or elsewhere in the Emergency Department. It did not include time spent performing other reported procedures or the services of residents, students, nurses or physician assistants. Critical Care Time: 35 minutes Definitive disposition and diagnosis as appropriate pending reevaluation and review of above. Rfoot Pain Score (Numeric/FACES): 10 - Related Data Allergies Allergy/AdvReac Type Severity Reaction Status Date / Time Sulfa (Sulfonamide Allergy Intermediate Hives Verified 01/24/21 22:55 Antibiotics) Home Meds: Home Meds Methotrexate 15 mg PO WEEKLY 05/29/14 [History] Sotalol [Betapace] 120 mg PO BID 05/29/14 [History] Spironolactone 50 mg PO DAILY 05/29/14 [History] Aspirin [Lo-Dose Aspirin EC] 81 mg PO DAILY 07/26/17 [History] Furosemide 40 mg PO DAILY PRN 07/26/17 [History] Omeprazole 20 mg PO ASDIRECTED PRN 07/26/17 [History] atorvaSTATin Calcium [Atorvastatin Calcium] 10 mg PO DAILY 07/26/17 [History] Albuterol Sulfate [Albuterol Sulfate HFA] 8.5 gm INH Q4H PRN #1 ea 01/15/21 [Rx] Folic Acid 1 mg PO DAILY 01/15/21 [History] Albuterol Sulfate 1 inh NEB TID PRN 01/24/21 [History] Citalopram Hydrobromide [Celexa] 40 mg PO DAILY 01/24/21 [History] Past Medical History HEENT History: Reports: None Cardiovascular History: Reports: Afib, High Cholesterol, Hypertension, SOB on Exertion, Stents Respiratory History: Reports: SOB Other Respiratory History: SOB at times Gastrointestinal History: Reports: GERD Genitourinary History: Reports: None 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: Musculoskeletal History: Reports: Back Pain, Chronic, Osteoarthritis, RA Neurological History: Reports: None Psychiatric History: Reports: Depression Endocrine/Metabolic History: Reports: Obesity/BMI 30+ Hematologic History: Reports: None Immunologic History: Reports: None Oncologic (Cancer) History: Reports: None Dermatologic History: Reports: None - Infectious Disease History Infectious Disease History: Reports: Chicken Pox - Past Surgical History Head Surgeries/Procedures: Reports: None HEENT Surgical History: Reports: Cataract Surgery Cardiovascular Surgical History: Reports: Coronary Artery Stent Female Surgical History: Reports: Tubal Ligation Other Female Surgeries/Procedures: hx rectocele repair Musculoskeletal Surgical History: Reports: Carpal Tunnel, Knee Replacement Other Musculoskeletal Surgeries/Procedures:: hx rt knee replacement Dermatological Surgical History: Reports: Skin Biopsy Social & Family History - Family History Family Medical History: No Pertinent Family History - Tobacco Use Tobacco Use Status *Q: Never Tobacco User - Caffeine Use Caffeine Use: Reports: Coffee - Recreational Drug Use Recreational Drug Use: No ED ROS GENERAL - Review of Systems Review Of Systems: See Below ED EXAM, GENERAL - Physical Exam Exam: See Below #1 Interpretation EKG Interpretation Comments: January 24, 2021 7:37 PM EKG: As interpreted by ER physician: Di: Nonspecific ST-T wave abnormalities Normal axis No evidence of ST elevation HI Normal sinus rhythm heart rate of 97 Course - Vital Signs Last Recorded V/S: Last Vital Signs Temp 96.9 F 01/25/21 05:11 Pulse 78 01/25/21 05:11 Resp 18 01/25/21 05:11 BP 115/59 L 01/25/21 05:11 Pulse Ox 97 01/25/21 05:11 - Orders/Labs/Meds Orders: Active Orders 24 hr Category Date Time Status Patient Status [ADT] Routine ADT 01/24/21 20:54 Active CULTURE BLOOD [BC] Stat Lab 01/24/21 20:15 Results CULTURE BLOOD [BC] Stat Lab 01/24/21 20:22 Received Pharmacy to Dose - Vancomycin Med 01/24/21 20:52 Pending 1 dose .XX ASDIRECTED Sodium Chloride 0.9% [Saline Flush] Med 01/24/21 19:19 Active 10 ml FLUSH ASDIRECTED PRN Sodium Chloride 0.9% [Saline Flush] Med 01/24/21 19:19 Active 2.5 ml FLUSH ASDIRECTED PRN Blood Culture x2 Reflex Set [OM.PC] Stat Oth 01/24/21 20:04 Ordered Isolation [COMM] Routine Oth 01/24/21 19:19 Active Saline Lock Insert [OM.PC] Stat Oth 01/24/21 19:19 Ordered Medication Orders Albuterol/Ipratropium (Albuterol/Ipratropium 3.0-0.5 Mg/3 Ml Neb Soln) 3 ml NEB Q4HRRT PRN PRN Reason: Shortness Of Breath/wheezing Aspirin (Aspirin 81 Mg Tab.Ec) 81 mg PO DAILY [facility] Atorvastatin Calcium (Atorvastatin 10 Mg Tab) 10 mg PO DAILY [facility] Citalopram Hydrobromide (Citalopram 20 Mg Tab) 40 mg PO DAILY [facility] Enoxaparin Sodium (Enoxaparin 40 Mg/0.4 Ml Syringe) 40 mg SUBCUT Q24H [facility] Last Admin: 01/24/21 23:42 Dose: 40 mg Documented by: DIANNE Folic Acid (Folic Acid 1 Mg Tab) 1 mg PO DAILY [facility] Guaifenesin (Guaifenesin 100 Mg/5 Ml Soln 5 Ml Ud Cup) 100 mg PO Q4H PRN PRN Reason: Cough Last Admin: 01/25/21 00:13 Dose: 100 mg Documented by: DIANNE Vancomycin HCl (Vancomycin 1.25 Gm/250 Ml) 250 mls @ 250 mls/hr IV Q24H [facility] Lactated Ringer's (Ringers, Lactated) 1,000 mls @ 75 mls/hr IV ASDIRECTED [facility] Last Admin: 01/24/21 23:46 Dose: 75 mls/hr Documented by: DIANNE Piperacillin Sod/Tazobactam (Sod 3.375 gm/ Sodium Chloride) 50 mls @ 100 mls/hr IV Q8H [facility] Last Admin: 01/25/21 05:05 Dose: 100 mls/hr Documented by: DIANNE Influenza Virus Vaccine (Flu Vacc [id number](65yr Up)/Pf 240 Mcg/0.7 Ml Syringe) 240 mcg IM .ONCE ONE Stop: 01/25/21 09:01 Omeprazole (Omeprazole 20 Mg Cap.Cr) 20 mg PO ASDIRECTED PRN PRN Reason: Heartburn Ondansetron HCl (Ondansetron 4 Mg/2 Ml Sdv) 4 mg IVPUSH Q4H PRN PRN Reason: Nausea/Vomiting Pantoprazole Sodium (Pantoprazole 40 Mg Vial) 40 mg IV DAILY [facility] Last Admin: 01/24/21 23:48 Dose: 40 mg Documented by: DIANNE Sodium Chloride (Sodium Chloride 0.9% 10 Ml Syringe) 10 ml FLUSH ASDIRECTED PRN PRN Reason: Keep Vein Open Sodium Chloride (Sodium Chloride 0.9% 2.5 Ml Syringe) 2.5 ml FLUSH ASDIRECTED PRN PRN Reason: Keep Vein Open Sotalol HCl (Sotalol 80 Mg Tab) 120 mg PO BID [facility] Spironolactone (Spironolactone 25 Mg Tab) 50 mg PO DAILY [facility] Vancomycin HCl (Pharmacy To Dose - Vancomycin) 1 dose .XX ASDIRECTED [facility] Labs: Laboratory Tests 01/24/21 01/24/21 01/24/21 Range/Units 19:41 19:41 19:41 WBC 21.29 H (4.0-11.0) K/uL RBC 3.44 L (4.30-5.90) M/uL Hgb 11.3 L (12.0-16.0) g/dL Hct 32.9 L (36.0-46.0) % MCV 95.6 (80.0-98.0) fL MCH 32.8 H (27.0-32.0) pg MCHC 34.3 (31.0-37.0) g/dL RDW Std Deviation 49.0 (28.0-62.0) fl RDW Coeff of Maryann 14 (11.0-15.0) % Plt Count 351 (150-400) K/uL MPV 8.50 (7.40-12.00) fL Neut % (Auto) 83.0 H (48.0-80.0) % Lymph % (Auto) 8.4 L (16.0-40.0) % [place] % (Auto) 7.9 (0.0-15.0) % Eos % (Auto) 0.6 (0.0-7.0) % Baso % (Auto) 0.1 (0.0-1.5) % Neut # (Auto) 17.7 H (1.4-5.7) K/uL Lymph # (Auto) 1.8 (0.6-2.4) K/uL [place] # (Auto) 1.7 H (0.0-0.8) K/uL Eos # (Auto) 0.1 (0.0-0.7) K/uL Baso # (Auto) 0.0 (0.0-0.1) K/uL Nucleated RBC % 0.0 /100WBC Nucleated RBCs # 0 K/uL Sodium 131 L (136-145) mmol/L Potassium 3.3 L (3.5-5.1) mmol/L Chloride 94 L (98-107) mmol/L Carbon Dioxide 26.5 (21.0-32.0) mmol/L BUN 17 (7.0-18.0) mg/dL Creatinine 0.8 (0.6-1.0) mg/dL Est Cr Clr Drug Dosing 39.50 mL/min Estimated GFR (MDRD) > 60.0 ml/min Glucose 182 H (74-106) mg/dL Lactic Acid (0.4-2.0) mmol/L Calcium 7.8 L (8.5-10.1) mg/dL Total Bilirubin 1.0 (0.2-1.0) mg/dL AST 36 (15-37) IU/L ALT 44 (14-63) IU/L Alkaline Phosphatase 74 (46-116) U/L Troponin I < 0.050 (0.000-0.056) ng/mL B-Natriuretic Peptide (<100) PG/ML Total Protein 6.2 L (6.4-8.2) g/dL Albumin 2.5 L (3.4-5.0) g/dL Globulin 3.7 (2.6-4.0) g/dL Albumin/Globulin Ratio 0.7 L (0.9-1.6) SARS-CoV-2 RNA (ENEIDA) NEGATIVE (NEGATIVE) 01/24/21 01/24/21 Range/Units 19:41 20:22 WBC (4.0-11.0) K/uL RBC (4.30-5.90) M/uL Hgb (12.0-16.0) g/dL Hct (36.0-46.0) % MCV (80.0-98.0) fL MCH (27.0-32.0) pg MCHC (31.0-37.0) g/dL RDW Std Deviation (28.0-62.0) fl RDW Coeff of Maryann (11.0-15.0) % Plt Count (150-400) K/uL MPV (7.40-12.00) fL Neut % (Auto) (48.0-80.0) % Lymph % (Auto) (16.0-40.0) % [place] % (Auto) (0.0-15.0) % Eos % (Auto) (0.0-7.0) % Baso % (Auto) (0.0-1.5) % Neut # (Auto) (1.4-5.7) K/uL Lymph # (Auto) (0.6-2.4) K/uL [place] # (Auto) (0.0-0.8) K/uL Eos # (Auto) (0.0-0.7) K/uL Baso # (Auto) (0.0-0.1) K/uL Nucleated RBC % /100WBC Nucleated RBCs # K/uL Sodium (136-145) mmol/L Potassium (3.5-5.1) mmol/L Chloride (98-107) mmol/L Carbon Dioxide (21.0-32.0) mmol/L BUN (7.0-18.0) mg/dL Creatinine (0.6-1.0) mg/dL Est Cr Clr Drug Dosing mL/min Estimated GFR (MDRD) ml/min Glucose (74-106) mg/dL Lactic Acid 1.1 (0.4-2.0) mmol/L Calcium (8.5-10.1) mg/dL Total Bilirubin (0.2-1.0) mg/dL AST (15-37) IU/L ALT (14-63) IU/L Alkaline Phosphatase (46-116) U/L Troponin I (0.000-0.056) ng/mL B-Natriuretic Peptide 70 (<100) PG/ML Total Protein (6.4-8.2) g/dL Albumin (3.4-5.0) g/dL Globulin (2.6-4.0) g/dL Albumin/Globulin Ratio (0.9-1.6) SARS-CoV-2 RNA (ENEIDA) (NEGATIVE) Meds: Medications Generic Name Dose Route Start Last Admin Trade Name Freq PRN Reason Stop Dose Admin Albuterol/Ipratropium 3 ml 01/24/21 21:58 Albuterol/Ipratropium 3.0-0.5 Mg/3 Ml Neb Soln NEB Q4HRRT PRN Shortness Of Breath/wheezing Aspirin 81 mg 01/25/21 09:00 Aspirin 81 Mg Tab.Ec PO DAILY [facility] Atorvastatin Calcium 10 mg 01/25/21 09:00 Atorvastatin 10 Mg Tab PO DAILY [facility] Citalopram Hydrobromide 40 mg 01/25/21 09:00 Citalopram 20 Mg Tab PO DAILY [facility] Enoxaparin Sodium 40 mg 01/24/21 22:00 01/24/21 23:42 Enoxaparin 40 Mg/0.4 Ml Syringe SUBCUT 40 mg Q24H [facility] Administration Folic Acid 1 mg 01/25/21 09:00 Folic Acid 1 Mg Tab PO DAILY [facility] Guaifenesin 100 mg 01/24/21 23:54 01/25/21 00:13 Guaifenesin 100 Mg/5 Ml Soln 5 Ml Ud Cup PO 100 mg Q4H PRN Administration Cough Vancomycin HCl 250 mls @ 250 mls/hr 01/25/21 21:00 Vancomycin 1.25 Gm/250 Ml IV Q24H [facility] Lactated Ringer's 1,000 mls @ 75 mls/hr 01/24/21 22:15 01/24/21 23:46 Ringers, Lactated IV 75 mls/hr ASDIRECTED AN[facility]A Administration Piperacillin Sod/Tazobactam 50 mls @ 100 mls/hr 01/25/21 05:00 01/25/21 05:05 Sod 3.375 gm/ Sodium Chloride IV 100 mls/hr Q8H [facility]A Administration Influenza Virus Vaccine 240 mcg 01/25/21 09:00 Flu Vacc [id number](65yr Up)/Pf 240 Mcg/0.7 Ml Syringe IM 01/25/21 09:01 .ONCE ONE Omeprazole 20 mg 01/25/21 09:00 Omeprazole 20 Mg Cap.Cr PO ASDIRECTED PRN Heartburn Ondansetron HCl 4 mg 01/24/21 23:00 Ondansetron 4 Mg/2 Ml Sdv IVPUSH Q4H PRN Nausea/Vomiting Pantoprazole Sodium 40 mg 01/24/21 22:00 01/24/21 23:48 Pantoprazole 40 Mg Vial IV 40 mg DAILY [facility] Administration Sodium Chloride 10 ml 01/24/21 19:19 Sodium Chloride 0.9% 10 Ml Syringe FLUSH ASDIRECTED PRN Keep Vein Open Sodium Chloride 2.5 ml 01/24/21 19:19 Sodium Chloride 0.9% 2.5 Ml Syringe FLUSH ASDIRECTED PRN Keep Vein Open Sotalol HCl 120 mg 01/25/21 09:00 Sotalol 80 Mg Tab PO BID [facility] Spironolactone 50 mg 01/25/21 09:00 Spironolactone 25 Mg Tab PO DAILY [facility] Vancomycin HCl 1 dose 01/24/21 20:52 Pharmacy To Dose - Vancomycin .XX ASDIRECTED [facility]A Discontinued Medications Generic Name Dose Route Start Last Admin Trade Name Freq PRN Reason Stop Dose Admin Acetaminophen 650 mg 01/24/21 20:05 01/24/21 21:18 Acetaminophen 325 Mg Tab PO 01/24/21 20:06 650 mg NOW ONE Administration Albuterol/Ipratropium 9 ml 01/24/21 19:19 01/24/21 19:33 Albuterol/Ipratropium 3.0-0.5 Mg/3 Ml Neb Soln NEB 01/24/21 19:20 9 ml ONETIME ONE Administration Dexamethasone 10 mg 01/24/21 19:19 01/24/21 19:30 Dexamethasone 10 Mg/Ml Sdv IVPUSH 01/24/21 19:20 10 mg ONETIME ONE Administration Furosemide 40 mg 01/25/21 09:00 Furosemide 20 Mg Tab PO DAILY PRN Edema Piperacillin Sod/Tazobactam 100 mls @ 100 mls/hr 01/24/21 20:36 01/24/21 21:19 Sod 4.5 gm/ Sodium Chloride IV 01/24/21 21:35 100 mls/hr ONETIME ONE Administration Vancomycin HCl 400 mls @ 200 mls/hr 01/24/21 21:15 01/24/21 23:53 Vancomycin 2 Gm/400 Ml IV 01/24/21 23:14 200 mls/hr ONETIME ONE Administration Influenza Virus Vaccine 1 each 01/25/21 09:00 Pharmacy To Dose - Influenza Vaccine IM 01/25/21 09:01 ONETIME ONE Ondansetron HCl 4 mg 01/24/21 19:29 01/24/21 19:44 Ondansetron 4 Mg/2 Ml Sdv IVPUSH 01/24/21 19:30 Not Given ONETIME ONE Potassium Chloride 40 meq 01/24/21 21:58 01/24/21 23:41 Potassium Chloride 20 Meq Tab.Er PO 01/24/21 21:59 40 meq ONETIME ONE Administration Departure - Departure Time of Disposition: 05:41 Disposition: Admitted As Inpatient 67 Condition: Fair Clinical Impression: Pneumonia, Respiratory failure with hypoxia, SIRS (systemic inflammatory response syndrome) - Discharge Information Sepsis Event Note (ED) - Evaluation Sepsis Screening Result: No Definite Risk - Focused Exam Vital Signs: Vital Signs Temp Pulse Resp BP Pulse Ox 01/24/21 19:06 101 F H 102 H 24 H 158/65 H 88 L - My Orders Last 24 Hours: My Active Orders 01/24/21 19:19 Sodium Chloride 0.9% [Saline Flush] 10 ml FLUSH ASDIRECTED PRN Sodium Chloride 0.9% [Saline Flush] 2.5 ml FLUSH ASDIRECTED PRN Isolation [COMM] Routine Saline Lock Insert [OM.PC] Stat 01/24/21 20:04 Blood Culture x2 Reflex Set [OM.PC] Stat 01/24/21 20:15 CULTURE BLOOD [BC] Stat 01/24/21 20:22 CULTURE BLOOD [BC] Stat 01/24/21 20:52 Pharmacy to Dose - Vancomycin 1 dose .XX ASDIRECTED 01/24/21 20:54 Patient Status [ADT] Routine - Assessment/Plan Last 24 Hours: My Active Orders 01/24/21 19:19 Sodium Chloride 0.9% [Saline Flush] 10 ml FLUSH ASDIRECTED PRN Sodium Chloride 0.9% [Saline Flush] 2.5 ml FLUSH ASDIRECTED PRN Isolation [COMM] Routine Saline Lock Insert [OM.PC] Stat 01/24/21 20:04 Blood Culture x2 Reflex Set [OM.PC] Stat 01/24/21 20:15 CULTURE BLOOD [BC] Stat 01/24/21 20:22 CULTURE BLOOD [BC] Stat 01/24/21 20:52 Pharmacy to Dose - Vancomycin 1 dose .XX ASDIRECTED 01/24/21 20:54 Patient Status [ADT] Routine
[2021-01-24] MEDS ORDERED: Acetaminophen 325 MG Tab PO ONE (20:05)
[2021-01-24 20:14] LABS: BLOOD UREA NITROGEN,BUN 17 mg/dL (7.0-18.0); CARBON DIOXIDE,CO2 26.5 mmol/L (21.0-32.0); CHLORIDE,CL 94 mmol/L (98-107); GLUCOSE RANDOM 182 mg/dL (74-106); POTASSIUM,K 3.3 mmol/L (3.5-5.1); SODIUM,NA 131 mmol/L (136-145)
--- NOTE | 2021-01-24 20:35 | CR ---
Indication: Shortness of breath, cough Technique: Chest 1 view Comparison: January 14, 2021 Findings/Impression: Stable cardiac size. New ill-defined opacities in the right mid to lower lung field concerning for new infection. No effusion or pneumothorax. No acute osseous abnormality. Dictated by Jennifer Gaspar MD @ 01/24/2021 8:33:41 PM (Electronically Signed)
--- NOTE | 2021-01-24 20:35 | CR ---
Indication: Medial foot pain and swelling Technique: Three views right foot Comparison: January 14, 2021 Findings: Bones: Alignment is normal. No fractures or bone lesions. Small inferior and posterior calcaneal enthesophytes. Joint spaces: Degenerative changes in the midfoot and 1st MTP joint. Soft tissues: Unremarkable. Impression: No acute abnormality. Degenerative changes in the midfoot and 1st MTP joint Dictated by Jennifer Gaspar MD @ 01/24/2021 8:32:39 PM (Electronically Signed)
[2021-01-24] MEDS ORDERED: Piperacillin/Tazobactam 4.5 GM in Sodium Chloride 0.9% 100 ML IV ONE (20:36)
[2021-01-24] MEDS ORDERED: VANCOmycin 2 GM/400 ML 400 ML IV ONE (21:15)
[2021-01-24] MEDS ORDERED: Potassium Chloride 20 MEQ Tab.ER PO ONE (21:58)
[2021-01-24] MEDS ORDERED: Albuterol/Ipratropium 3.0-0.5 MG/3 ML Neb Soln NEB PRN (21:58)
--- NOTE | 2021-01-24 22:04 | PCM.HP.2 ---
H&P History of Present Illness - General Date of Service: 01/24/21 Admit Problem/Dx: Admission Diagnosis/Problem Admission Diagnosis/Problem Pneumonia - History of Present Illness Initial Comments - Free Text/Narative: This is an 85-year-old female with a history significant for atrial fibrillation, hypertension, CAD status post stents, GERD, CHF, emphysema osteoarthritis, who presents ER today complaining of increasing shortness of breath, increasing yellow productive cough, and increasing pain to her right foot. Patient had a recent admission to the hospital for shortness of breath that resolved after nebulized treatments. That visit, CTA of her chest which not reveal any evidence of blood clots however did reveal that she did have fibrosis and emphysematous changes. Patient presents ER today secondary to worsening shortness of breath. Patient reports she does have nausea with occasional episodes of emesis. Patient reports that she has had decreased p.o. intake over the last 1 to 2 days. Patient denies any dysuria, frequency, urgency. Patient denies any abdominal pain or discomfort. In reviewing her records she was Covid negative during her last admission. She reports that she has pain when she ambulates but denies any recent fall or trauma. Upon arrival to the ED she was noted to be febrile with a temperature of 102 and hypoxic with a pulse ox of 88% on room air. Patient reports that she does not utilize home oxygen at home. Patient's presentation is concerning for sepsis. 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 Patient's Covid test is negative. Patient was found to have el evated white count along with tachycardia and fever, patient met sepsis criteria with possible source being pneumonia, blood cultures were obtained and patient was started on broad-spectrum antibiotics, lactic acid was normal. Patient was admitted to the hospital for further management. Patient states that she has chronic swelling of her bilateral feet but usually her right foot is less swollen than the left but for the past 2 days right foot is swollen as well and it hurts her on ambulation. Rfoot Pain Score (Numeric/FACES): 10 - Related Data Allergies/Adverse Reactions: Allergies Allergy/AdvReac Type Severity Reaction Status Date / Time Sulfa (Sulfonamide Allergy Intermediate Hives Verified 01/24/21 22:55 Antibiotics) Home Medications: Home Meds Methotrexate 15 mg PO WEEKLY 05/29/14 [History] Sotalol [Betapace] 120 mg PO BID 05/29/14 [History] Spironolactone 50 mg PO DAILY 05/29/14 [History] Aspirin [Lo-Dose Aspirin EC] 81 mg PO DAILY 07/26/17 [History] Furosemide 40 mg PO DAILY PRN 07/26/17 [History] Omeprazole 20 mg PO ASDIRECTED PRN 07/26/17 [History] atorvaSTATin Calcium [Atorvastatin Calcium] 10 mg PO DAILY 07/26/17 [History] Albuterol Sulfate [Albuterol Sulfate HFA] 8.5 gm INH Q4H PRN #1 ea 01/15/21 [Rx] Folic Acid 1 mg PO DAILY 01/15/21 [History] Albuterol Sulfate 1 inh NEB TID PRN 01/24/21 [History] Citalopram Hydrobromide [Celexa] 40 mg PO DAILY 01/24/21 [History] Past Medical History HEENT History: Reports: None Cardiovascular History: Reports: Afib, High Cholesterol, Hypertension, SOB on Exertion, Stents Respiratory History: Reports: SOB Other Respiratory History: SOB at times Gastrointestinal History: Reports: GERD Genitourinary History: Reports: None 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: Musculoskeletal History: Reports: Back Pain, Chronic, Osteoarthritis, RA Neurological History: Reports: None Psychiatric History: Reports: Depression Endocrine/Metabolic History: Reports: Obesity/BMI 30+ Hematologic History: Reports: None Immunologic History: Reports: None Oncologic (Cancer) History: Reports: None Dermatologic History: Reports: None - Infectious Disease History Infectious Disease History: Reports: Chicken Pox - Past Surgical History Head Surgeries/Procedures: Reports: None HEENT Surgical History: Reports: Cataract Surgery Cardiovascular Surgical History: Reports: Coronary Artery Stent Female Surgical History: Reports: Tubal Ligation Other Female Surgeries/Procedures: hx rectocele repair Musculoskeletal Surgical History: Reports: Carpal Tunnel, Knee Replacement Other Musculoskeletal Surgeries/Procedures:: hx rt knee replacement Dermatological Surgical History: Reports: Skin Biopsy Social & Family History - Family History Family Medical History: No Pertinent Family History - Tobacco Use Tobacco Use Status *Q: Never Tobacco User - Caffeine Use Caffeine Use: Reports: Coffee - Recreational Drug Use Recreational Drug Use: No H&P Review of Systems - Review of Systems: Review Of Systems: See Below General: Reports: Fever, Malaise, Weakness. Denies: Chills Pulmonary: Reports: Shortness of Breath, Cough, Sputum. Denies: Wheezing, Hemoptysis Cardiovascular: Reports: Dyspnea on Exertion. Denies: Chest Pain, Palpitations, Orthopnea, PND Gastrointestinal: Reports: Anorexia, Decreased Appetite, Nausea, Vomiting. Denies: Abdominal Pain, Black Stool, Bloody Stool, Constipation, Diarrhea Genitourinary: Denies: Dysuria, Frequency, Burning Musculoskeletal: Reports: Leg Pain, Foot Pain. Denies: Neck Pain, Shoulder Pain, Arm Pain Skin: Denies: Cyanosis, Jaundice, Mottled Psychiatric: Denies: Confusion, Depression, Mood Lability Neurological: Denies: Confusion, Dizziness Exam - Exam Exam: See Below - Vital Signs Vital Signs: Last Vital Signs Temp 38.3 C H 01/24/21 19:06 Pulse 105 H 01/24/21 21:21 Resp 18 01/24/21 21:21 BP 132/60 01/24/21 21:21 Pulse Ox 94 L 01/24/21 21:21 Weight: 86.183 kg - Exam Quality Assessment: Supplemental Oxygen General: Alert, Oriented Neck: Supple, Trachea Midline Lungs: Decreased Breath Sounds, Rales, Wheezing Cardiovascular: Regular Rate, Regular Rhythm GI/Abdominal Exam: Normal Bowel Sounds, Soft, Non-Tender - Patient Data Lab Results Last 24 hrs: Laboratory Results - last 24 hr 01/24/21 01/24/21 01/24/21 Range/Units 19:41 19:41 19:41 WBC 21.29 H (4.0-11.0) K/uL RBC 3.44 L (4.30-5.90) M/uL Hgb 11.3 L (12.0-16.0) g/dL Hct 32.9 L (36.0-46.0) % MCV 95.6 (80.0-98.0) fL MCH 32.8 H (27.0-32.0) pg MCHC 34.3 (31.0-37.0) g/dL RDW Std Deviation 49.0 (28.0-62.0) fl RDW Coeff of Maryann 14 (11.0-15.0) % Plt Count 351 (150-400) K/uL MPV 8.50 (7.40-12.00) fL Neut % (Auto) 83.0 H (48.0-80.0) % Lymph % (Auto) 8.4 L (16.0-40.0) % Parke % (Auto) 7.9 (0.0-15.0) % Eos % (Auto) 0.6 (0.0-7.0) % Baso % (Auto) 0.1 (0.0-1.5) % Neut # (Auto) 17.7 H (1.4-5.7) K/uL Lymph # (Auto) 1.8 (0.6-2.4) K/uL Parke # (Auto) 1.7 H (0.0-0.8) K/uL Eos # (Auto) 0.1 (0.0-0.7) K/uL Baso # (Auto) 0.0 (0.0-0.1) K/uL Nucleated RBC % 0.0 /100WBC Nucleated RBCs # 0 K/uL Sodium 131 L (136-145) mmol/L Potassium 3.3 L (3.5-5.1) mmol/L Chloride 94 L (98-107) mmol/L Carbon Dioxide 26.5 (21.0-32.0) mmol/L BUN 17 (7.0-18.0) mg/dL Creatinine 0.8 (0.6-1.0) mg/dL Est Cr Clr Drug Dosing 39.50 mL/min Estimated GFR (MDRD) > 60.0 ml/min Glucose 182 H (74-106) mg/dL Lactic Acid (0.4-2.0) mmol/L Calcium 7.8 L (8.5-10.1) mg/dL Total Bilirubin 1.0 (0.2-1.0) mg/dL AST 36 (15-37) IU/L ALT 44 (14-63) IU/L Alkaline Phosphatase 74 (46-116) U/L Troponin I < 0.050 (0.000-0.056) ng/mL B-Natriuretic Peptide (<100) PG/ML Total Protein 6.2 L (6.4-8.2) g/dL Albumin 2.5 L (3.4-5.0) g/dL Globulin 3.7 (2.6-4.0) g/dL Albumin/Globulin Ratio 0.7 L (0.9-1.6) SARS-CoV-2 RNA (ENEIDA) NEGATIVE (NEGATIVE) 01/24/21 01/24/21 Range/Units 19:41 20:22 WBC (4.0-11.0) K/uL RBC (4.30-5.90) M/uL Hgb (12.0-16.0) g/dL Hct (36.0-46.0) % MCV (80.0-98.0) fL MCH (27.0-32.0) pg MCHC (31.0-37.0) g/dL RDW Std Deviation (28.0-62.0) fl RDW Coeff of Maryann (11.0-15.0) % Plt Count (150-400) K/uL MPV (7.40-12.00) fL Neut % (Auto) (48.0-80.0) % Lymph % (Auto) (16.0-40.0) % Parke % (Auto) (0.0-15.0) % Eos % (Auto) (0.0-7.0) % Baso % (Auto) (0.0-1.5) % Neut # (Auto) (1.4-5.7) K/uL Lymph # (Auto) (0.6-2.4) K/uL Parke # (Auto) (0.0-0.8) K/uL Eos # (Auto) (0.0-0.7) K/uL Baso # (Auto) (0.0-0.1) K/uL Nucleated RBC % /100WBC Nucleated RBCs # K/uL Sodium (136-145) mmol/L Potassium (3.5-5.1) mmol/L Chloride (98-107) mmol/L Carbon Dioxide (21.0-32.0) mmol/L BUN (7.0-18.0) mg/dL Creatinine (0.6-1.0) mg/dL Est Cr Clr Drug Dosing mL/min Estimated GFR (MDRD) ml/min Glucose (74-106) mg/dL Lactic Acid 1.1 (0.4-2.0) mmol/L Calcium (8.5-10.1) mg/dL Total Bilirubin (0.2-1.0) mg/dL AST (15-37) IU/L ALT (14-63) IU/L Alkaline Phosphatase (46-116) U/L Troponin I (0.000-0.056) ng/mL B-Natriuretic Peptide 70 (<100) PG/ML Total Protein (6.4-8.2) g/dL Albumin (3.4-5.0) g/dL Globulin (2.6-4.0) g/dL Albumin/Globulin Ratio (0.9-1.6) SARS-CoV-2 RNA (ENEIDA) (NEGATIVE) Result Diagrams: 01/25/21 05:30 01/25/21 05:30 Maurilio Results Last 24 hrs: Microbiology 01/24/21 20:15 Anaerobic Blood Culture - Final Blood - Venous 01/24/21 19:41 Influenza Type A Antigen Screen - Final Nasopharyngeal Swab NEGATIVE INFLUENZA A VIRUS AG REFERENCE RANGE: NEGATIVE Influenza Type B Antigen Screen - Final NEGATIVE INFLUENZA B VIRUS AG REFERENCE RANGE: NEGATIVE Sepsis Event Note - Evaluation Sepsis Screening Result: No Definite Risk - Focused Exam Vital Signs: Vital Signs Temp Pulse Resp BP Pulse Ox 01/24/21 21:21 105 H 18 132/60 94 L 01/24/21 19:06 38.3 C H 102 H 24 H 158/65 H 88 L - Problem List (1) Sepsis SNOMED Code(s): 40682177 ICD Code: A41.9 - SEPSIS, UNSPECIFIED ORGANISM Status: Acute Current Visit: Yes (2) Pneumonia SNOMED Code(s): 657534124 ICD Code: J18.9 - PNEUMONIA, UNSPECIFIED ORGANISM Status: Acute Current Visit: Yes (3) Respiratory failure with hypoxia SNOMED Code(s): 37131935948769384 ICD Code: J96.91 - RESPIRATORY FAILURE, UNSPECIFIED WITH HYPOXIA Status: Acute Current Visit: Yes (4) Atrial fibrillation SNOMED Code(s): 24217554 ICD Code: I48.91 - UNSPECIFIED ATRIAL FIBRILLATION Status: Acute Current Visit: No (5) GERD (gastroesophageal reflux disease) SNOMED Code(s): 736236972 ICD Code: K21.9 - GASTRO-ESOPHAGEAL REFLUX DISEASE WITHOUT ESOPHAGITIS Status: Acute Current Visit: No (6) Lower extremity edema SNOMED Code(s): 150059127 ICD Code: R60.0 - LOCALIZED EDEMA Status: Acute Current Visit: No Problem List Initiated/Reviewed/Updated: Yes Orders Last 24hrs: Active Orders 24 hr Category Date Time Status Patient Status [ADT] Routine ADT 01/24/21 20:54 Active Ambulate [RC] ASDIRECTED Care 01/24/21 21:58 Active Antiembolic Devices [RC] PER UNIT ROUTINE Care 01/24/21 21:59 Active Oxygen Therapy [RC] PRN Care 01/24/21 21:58 Active RT Aerosol Therapy [RC] ASDIRECTED Care 01/24/21 22:00 Active VTE/DVT Education [RC] PER UNIT ROUTINE Care 01/24/21 21:58 Active Vital Signs [RC] Q4H Care 01/24/21 21:58 Active Heart Healthy Diet [DIET] Diet 01/25/21 Breakfast Active BMP [BASIC METABOLIC PANEL,BMP] [CHEM] AM Lab 01/25/21 05:11 Ordered CBC WITH AUTO DIFF [HEME] AM Lab 01/25/21 05:11 Ordered CULTURE BLOOD [BC] Stat Lab 01/24/21 20:15 Results CULTURE BLOOD [BC] Stat Lab 01/24/21 20:22 Received MAGNESIUM [CHEM] AM Lab 01/25/21 05:11 Ordered PHOSPHORUS [CHEM] AM Lab 01/25/21 05:11 Ordered VANCOMYCIN TROUGH [CHEM] Timed Lab 01/28/21 20:30 Ordered Albuterol/Ipratropium [DuoNeb 3.0-0.5 MG/3 ML] Med 01/24/21 21:58 Active 3 ml NEB Q4HRRT PRN Enoxaparin [Lovenox] Med 01/24/21 22:00 Active 40 mg SUBCUT Q24H Lactated Ringers [Ringers, Lactated] 1,000 ml Med 01/24/21 22:15 Active IV ASDIRECTED Ondansetron [Zofran] Med 01/24/21 23:00 Active 4 mg IVPUSH Q4H PRN Pantoprazole [ProTONIX IV] Med 01/24/21 22:00 Active 40 mg IV DAILY Pharmacy to Dose - Vancomycin Med 01/24/21 20:52 Pending 1 dose .XX ASDIRECTED Piperacillin/Tazobactam [Piperacil-Tazobact] 3.375 gm Med 01/25/21 05:00 Ordered Sodium Chloride 0.9% [Normal Saline] 50 ml IV Q8H Sodium Chloride 0.9% [Saline Flush] Med 01/24/21 19:19 Active 10 ml FLUSH ASDIRECTED PRN Sodium Chloride 0.9% [Saline Flush] Med 01/24/21 19:19 Active 2.5 ml FLUSH ASDIRECTED PRN VANCOmycin 1.25 GM/250 ML 250 ml Med 01/25/21 21:00 Active IV Q24H VANCOmycin 2 GM/400 ML 400 ml Med 01/24/21 21:15 Active IV ONETIME Blood Culture x2 Reflex Set [OM.PC] Stat Oth 01/24/21 20:04 Ordered Isolation [COMM] Routine Oth 01/24/21 19:19 Active Saline Lock Insert [OM.PC] Stat Oth 01/24/21 19:19 Ordered Sequential Compression Device [OM.PC] Per Unit Routine Ot 01/24/21 21:59 Ordered Medication Orders Albuterol/Ipratropium (Albuterol/Ipratropium 3.0-0.5 Mg/3 Ml Neb Soln) 3 ml NEB Q4HRRT PRN PRN Reason: Shortness Of Breath/wheezing Enoxaparin Sodium (Enoxaparin 40 Mg/0.4 Ml Syringe) 40 mg SUBCUT Q24H ANTONIETA Vancomycin HCl (Vancomycin 2 Gm/400 Ml) 400 mls @ 200 mls/hr IV ONETIME ONE Stop: 01/24/21 23:14 Vancomycin HCl (Vancomycin 1.25 Gm/250 Ml) 250 mls @ 250 mls/hr IV Q24H ANTONIETA Lactated Ringer's (Ringers, Lactated) 1,000 mls @ 75 mls/hr IV ASDIRECTED ANTONIETA Piperacillin Sod/Tazobactam (Sod 3.375 gm/ Sodium Chloride) 50 mls @ 100 mls/hr IV Q8H ANTONIETA Ondansetron HCl (Ondansetron 4 Mg/2 Ml Sdv) 4 mg IVPUSH Q4H PRN PRN Reason: Nausea/Vomiting Pantoprazole Sodium (Pantoprazole 40 Mg Vial) 40 mg IV DAILY ANTONIETA Sodium Chloride (Sodium Chloride 0.9% 10 Ml Syringe) 10 ml FLUSH ASDIRECTED PRN PRN Reason: Keep Vein Open Sodium Chloride (Sodium Chloride 0.9% 2.5 Ml Syringe) 2.5 ml FLUSH ASDIRECTED PRN PRN Reason: Keep Vein Open Vancomycin HCl (Pharmacy To Dose - Vancomycin) 1 dose .XX ASDIRECTED [facility] Assessment/Plan Comment:: 85-year-old female admitted for sepsis secondary to pneumonia Continue broad-spectrum antibiotics including IV vancomycin and IV Zosyn Follow-up on blood cultures Continue oxygenation via nasal cannula, wean off as tolerated Resume home meds as tolerated Currently patient is intravascularly volume depleted although she does have chronic edema of her lower limbs, will give her IV fluids overnight and depending upon her oral intake will probably stop fluids in the morning Continue to monitor closely X-ray of the foot noted no acute fracture We will possibly need PT consult to assess for safe ambulation
[2021-01-24] MEDS ORDERED: Lactated Ringers 1,000 ML IV SCH (22:15)
[2021-01-24] MEDS ORDERED: Ondansetron 4 MG/2 ML SDV IVPUSH PRN (23:00)
[2021-01-24] MEDS: Enoxaparin 40 MG/0.4 ML Syringe SUBCUT SCH (23:42)
[2021-01-24] MEDS: Pantoprazole 40 MG Vial IV SCH (23:48)
[2021-01-25] MEDS: guaiFENesin 100 MG/5 ML Soln 5 ML UD Cup PO PRN ×4 (00:13→21:27)
[2021-01-25] MEDS: Piperacillin/Tazobactam 3.375 GM in Sodium Chloride 0.9% 50 ML IV SCH ×3 (05:05→21:00)
[2021-01-25 06:43] LABS: BLOOD UREA NITROGEN,BUN 14 mg/dL (7.0-18.0); CARBON DIOXIDE,CO2 26.4 mmol/L (21.0-32.0); CHLORIDE,CL 100 mmol/L (98-107); GLUCOSE RANDOM 189 mg/dL (74-106); POTASSIUM,K 4.4 mmol/L (3.5-5.1); SODIUM,NA 135 mmol/L (136-145)
[2021-01-25] MEDS ORDERED: Omeprazole 20 MG Cap.CR PO PRN (09:00)
[2021-01-25] MEDS ORDERED: Furosemide 20 MG Tab PO PRN (09:00)
[2021-01-25] MEDS: Sotalol 80 MG Tab PO SCH ×2 (10:02→20:58)
[2021-01-25] MEDS: Aspirin 81 MG Tab.EC PO SCH (10:04)
[2021-01-25] MEDS: atorvaSTATin 10 MG Tab PO SCH (10:04)
[2021-01-25] MEDS: Spironolactone 25 MG Tab PO SCH (10:05)
[2021-01-25] MEDS: Folic Acid 1 MG Tab PO SCH (10:05)
[2021-01-25] MEDS: Citalopram 20 MG Tab PO SCH (10:06)
[2021-01-25] MEDS: Pantoprazole 40 MG Vial IV SCH (10:08)
--- NOTE | 2021-01-25 15:19 | PCM.PN ---
- General Info Date of Service: 01/25/21 Admission Dx/Problem (Free Text): Admission Diagnosis/Problem Admission Diagnosis/Problem Pneumonia Subjective Update: Patient seen and examined at bedside, currently on recliner chair states that cough is bothersome and it helps to stay in the chair, states that she feels much better today. Functional Status: Reports: Tolerating Diet, Ambulating, Urinating - Review of Systems General: Reports: Weakness, Fatigue, Malaise. Denies: Fever Pulmonary: Reports: Shortness of Breath, Cough, Sputum. Denies: Pleuritic Chest Pain Cardiovascular: Reports: Dyspnea on Exertion. Denies: Chest Pain, Palpitations Gastrointestinal: Denies: Abdominal Pain, Constipation, Decreased Appetite, Diar silvano Genitourinary: Denies: Dysuria, Frequency, Burning Musculoskeletal: Reports: Leg Pain, Foot Pain. Denies: Neck Pain, Shoulder Pain, Arm Pain, Back Pain Skin: Denies: Cyanosis, Jaundice, Mottled Neurological: Denies: Confusion, Dizziness, Headache - Patient Data Vitals - Most Recent: Last Vital Signs Temp 36.8 C 01/25/21 13:00 Pulse 84 01/25/21 13:00 Resp 16 01/25/21 13:00 BP 114/65 01/25/21 13:00 Pulse Ox 94 L 01/25/21 13:00 Weight - Most Recent: 88.632 kg I&O - Last 24 Hours: Intake & Output 01/25/21 01/25/21 01/25/21 06:59 14:59 22:59 Intake Total 700 Output Total 700 Balance 0 Lab Results Last 24 Hours: Laboratory Results - last 24 hr 01/24/21 01/24/21 01/24/21 Range/Units 19:41 19:41 19:41 WBC 21.29 H (4.0-11.0) K/uL RBC 3.44 L (4.30-5.90) M/uL Hgb 11.3 L (12.0-16.0) g/dL Hct 32.9 L (36.0-46.0) % MCV 95.6 (80.0-98.0) fL MCH 32.8 H (27.0-32.0) pg MCHC 34.3 (31.0-37.0) g/dL RDW Std Deviation 49.0 (28.0-62.0) fl RDW Coeff of Maryann 14 (11.0-15.0) % Plt Count 351 (150-400) K/uL MPV 8.50 (7.40-12.00) fL Neut % (Auto) 83.0 H (48.0-80.0) % Lymph % (Auto) 8.4 L (16.0-40.0) % [place] % (Auto) 7.9 (0.0-15.0) % Eos % (Auto) 0.6 (0.0-7.0) % Baso % (Auto) 0.1 (0.0-1.5) % Neut # (Auto) 17.7 H (1.4-5.7) K/uL Lymph # (Auto) 1.8 (0.6-2.4) K/uL [place] # (Auto) 1.7 H (0.0-0.8) K/uL Eos # (Auto) 0.1 (0.0-0.7) K/uL Baso # (Auto) 0.0 (0.0-0.1) K/uL Nucleated RBC % 0.0 /100WBC Nucleated RBCs # 0 K/uL Sodium 131 L (136-145) mmol/L Potassium 3.3 L (3.5-5.1) mmol/L Chloride 94 L (98-107) mmol/L Carbon Dioxide 26.5 (21.0-32.0) mmol/L BUN 17 (7.0-18.0) mg/dL Creatinine 0.8 (0.6-1.0) mg/dL Est Cr Clr Drug Dosing 39.50 mL/min Estimated GFR (MDRD) > 60.0 ml/min Glucose 182 H (74-106) mg/dL Lactic Acid (0.4-2.0) mmol/L Calcium 7.8 L (8.5-10.1) mg/dL Phosphorus (2.6-4.7) mg/dL Magnesium (1.8-2.4) mg/dL Total Bilirubin 1.0 (0.2-1.0) mg/dL AST 36 (15-37) IU/L ALT 44 (14-63) IU/L Alkaline Phosphatase 74 (46-116) U/L Troponin I < 0.050 (0.000-0.056) ng/mL B-Natriuretic Peptide (<100) PG/ML Total Protein 6.2 L (6.4-8.2) g/dL Albumin 2.5 L (3.4-5.0) g/dL Globulin 3.7 (2.6-4.0) g/dL Albumin/Globulin Ratio 0.7 L (0.9-1.6) SARS-CoV-2 RNA (ENEIDA) NEGATIVE (NEGATIVE) 01/24/21 01/24/21 01/25/21 Range/Units 19:41 20:22 05:30 WBC 16.12 H (4.0-11.0) K/uL RBC 3.18 L (4.30-5.90) M/uL Hgb 10.5 L (12.0-16.0) g/dL Hct 30.8 L (36.0-46.0) % MCV 96.9 (80.0-98.0) fL MCH 33.0 H (27.0-32.0) pg MCHC 34.1 (31.0-37.0) g/dL RDW Std Deviation 48.8 (28.0-62.0) fl RDW Coeff of Maryann 14 (11.0-15.0) % Plt Count 326 (150-400) K/uL MPV 8.80 (7.40-12.00) fL Neut % (Auto) 91.4 H (48.0-80.0) % Lymph % (Auto) 7.0 L (16.0-40.0) % [place] % (Auto) 1.5 (0.0-15.0) % Eos % (Auto) 0.0 (0.0-7.0) % Baso % (Auto) 0.1 (0.0-1.5) % Neut # (Auto) 14.7 H (1.4-5.7) K/uL Lymph # (Auto) 1.1 (0.6-2.4) K/uL [place] # (Auto) 0.2 (0.0-0.8) K/uL Eos # (Auto) 0.0 (0.0-0.7) K/uL Baso # (Auto) 0.0 (0.0-0.1) K/uL Nucleated RBC % 0.0 /100WBC Nucleated RBCs # 0 K/uL Sodium (136-145) mmol/L Potassium (3.5-5.1) mmol/L Chloride (98-107) mmol/L Carbon Dioxide (21.0-32.0) mmol/L BUN (7.0-18.0) mg/dL Creatinine (0.6-1.0) mg/dL Est Cr Clr Drug Dosing mL/min Estimated GFR (MDRD) ml/min Glucose (74-106) mg/dL Lactic Acid 1.1 (0.4-2.0) mmol/L Calcium (8.5-10.1) mg/dL Phosphorus (2.6-4.7) mg/dL Magnesium (1.8-2.4) mg/dL Total Bilirubin (0.2-1.0) mg/dL AST (15-37) IU/L ALT (14-63) IU/L Alkaline Phosphatase (46-116) U/L Troponin I (0.000-0.056) ng/mL B-Natriuretic Peptide 70 (<100) PG/ML Total Protein (6.4-8.2) g/dL Albumin (3.4-5.0) g/dL Globulin (2.6-4.0) g/dL Albumin/Globulin Ratio (0.9-1.6) SARS-CoV-2 RNA (ENEIDA) (NEGATIVE) 01/25/21 Range/Units 05:30 WBC (4.0-11.0) K/uL RBC (4.30-5.90) M/uL Hgb (12.0-16.0) g/dL Hct (36.0-46.0) % MCV (80.0-98.0) fL MCH (27.0-32.0) pg MCHC (31.0-37.0) g/dL RDW Std Deviation (28.0-62.0) fl RDW Coeff of Maryann (11.0-15.0) % Plt Count (150-400) K/uL MPV (7.40-12.00) fL Neut % (Auto) (48.0-80.0) % Lymph % (Auto) (16.0-40.0) % [place] % (Auto) (0.0-15.0) % Eos % (Auto) (0.0-7.0) % Baso % (Auto) (0.0-1.5) % Neut # (Auto) (1.4-5.7) K/uL Lymph # (Auto) (0.6-2.4) K/uL [place] # (Auto) (0.0-0.8) K/uL Eos # (Auto) (0.0-0.7) K/uL Baso # (Auto) (0.0-0.1) K/uL Nucleated RBC % /100WBC Nucleated RBCs # K/uL Sodium 135 L (136-145) mmol/L Potassium 4.4 (3.5-5.1) mmol/L Chloride 100 (98-107) mmol/L Carbon Dioxide 26.4 (21.0-32.0) mmol/L BUN 14 (7.0-18.0) mg/dL Creatinine 0.7 (0.6-1.0) mg/dL Est Cr Clr Drug Dosing 45.14 mL/min Estimated GFR (MDRD) > 60.0 ml/min Glucose 189 H (74-106) mg/dL Lactic Acid (0.4-2.0) mmol/L Calcium 8.2 L (8.5-10.1) mg/dL Phosphorus 3.5 (2.6-4.7) mg/dL Magnesium 2.1 (1.8-2.4) mg/dL Total Bilirubin (0.2-1.0) mg/dL AST (15-37) IU/L ALT (14-63) IU/L Alkaline Phosphatase (46-116) U/L Troponin I (0.000-0.056) ng/mL B-Natriuretic Peptide (<100) PG/ML Total Protein (6.4-8.2) g/dL Albumin (3.4-5.0) g/dL Globulin (2.6-4.0) g/dL Albumin/Globulin Ratio (0.9-1.6) SARS-CoV-2 RNA (ENEIDA) (NEGATIVE) Maurilio Results Last 24 Hours: Microbiology 01/24/21 20:15 Anaerobic Blood Culture - Final Blood - Venous 01/24/21 19:41 Influenza Type A Antigen Screen - Final Nasopharyngeal Swab NEGATIVE INFLUENZA A VIRUS AG REFERENCE RANGE: NEGATIVE Influenza Type B Antigen Screen - Final NEGATIVE INFLUENZA B VIRUS AG REFERENCE RANGE: NEGATIVE Med Orders - Current: Current Medications Albuterol/Ipratropium (Albuterol/Ipratropium 3.0-0.5 Mg/3 Ml Neb Soln) 3 ml NEB Q4HRRT PRN PRN Reason: Shortness Of Breath/wheezing Aspirin (Aspirin 81 Mg Tab.Ec) 81 mg PO DAILY [facility] Last Admin: 01/25/21 10:04 Dose: 81 mg Documented by: Atorvastatin Calcium (Atorvastatin 10 Mg Tab) 10 mg PO DAILY [facility] Last Admin: 01/25/21 10:04 Dose: 10 mg Documented by: Citalopram Hydrobromide (Citalopram 20 Mg Tab) 40 mg PO DAILY [facility] Last Admin: 01/25/21 10:06 Dose: 40 mg Documented by: Enoxaparin Sodium (Enoxaparin 40 Mg/0.4 Ml Syringe) 40 mg SUBCUT Q24H [facility] Last Admin: 01/24/21 23:42 Dose: 40 mg Documented by: Folic Acid (Folic Acid 1 Mg Tab) 1 mg PO DAILY [facility] Last Admin: 01/25/21 10:05 Dose: 1 mg Documented by: Guaifenesin (Guaifenesin 100 Mg/5 Ml Soln 5 Ml Ud Cup) 100 mg PO Q4H PRN PRN Reason: Cough Last Admin: 01/25/21 06:38 Dose: 100 mg Documented by: Vancomycin HCl (Vancomycin 1.25 Gm/250 Ml) 250 mls @ 250 mls/hr IV Q24H [facility] Piperacillin Sod/Tazobactam (Sod 3.375 gm/ Sodium Chloride) 50 mls @ 100 mls/hr IV Q8H [facility] Last Admin: 01/25/21 12:47 Dose: 100 mls/hr Documented by: Omeprazole (Omeprazole 20 Mg Cap.Cr) 20 mg PO DAILY PRN PRN Reason: Heartburn Ondansetron HCl (Ondansetron 4 Mg/2 Ml Sdv) 4 mg IVPUSH Q4H PRN PRN Reason: Nausea/Vomiting Pantoprazole Sodium (Pantoprazole 40 Mg Vial) 40 mg IV DAILY [facility] Last Admin: 01/25/21 10:08 Dose: 40 mg Documented by: Sodium Chloride (Sodium Chloride 0.9% 10 Ml Syringe) 10 ml FLUSH ASDIRECTED PRN PRN Reason: Keep Vein Open Sodium Chloride (Sodium Chloride 0.9% 2.5 Ml Syringe) 2.5 ml FLUSH ASDIRECTED PRN PRN Reason: Keep Vein Open Sotalol HCl (Sotalol 80 Mg Tab) 120 mg PO BID [facility] Last Admin: 01/25/21 10:02 Dose: 120 mg Documented by: Spironolactone (Spironolactone 25 Mg Tab) 50 mg PO DAILY [facility] Last Admin: 01/25/21 10:05 Dose: 50 mg Documented by: Vancomycin HCl (Pharmacy To Dose - Vancomycin) 1 dose .XX ASDIRECTED [facility] Discontinued Medications Acetaminophen (Acetaminophen 325 Mg Tab) 650 mg PO NOW ONE Stop: 01/24/21 20:06 Last Admin: 01/24/21 21:18 Dose: 650 mg Documented by: Albuterol/Ipratropium (Albuterol/Ipratropium 3.0-0.5 Mg/3 Ml Neb Soln) 9 ml NEB ONETIME ONE Stop: 01/24/21 19:20 Last Admin: 01/24/21 19:33 Dose: 9 ml Documented by: Dexamethasone (Dexamethasone 10 Mg/Ml Sdv) 10 mg IVPUSH ONETIME ONE Stop: 01/24/21 19:20 Last Admin: 01/24/21 19:30 Dose: 10 mg Documented by: Furosemide (Furosemide 20 Mg Tab) 40 mg PO DAILY PRN PRN Reason: Edema Piperacillin Sod/Tazobactam (Sod 4.5 gm/ Sodium Chloride) 100 mls @ 100 mls/hr IV ONETIME ONE Stop: 01/24/21 21:35 Last Admin: 01/24/21 21:19 Dose: 100 mls/hr Documented by: Vancomycin HCl (Vancomycin 2 Gm/400 Ml) 400 mls @ 200 mls/hr IV ONETIME ONE Stop: 01/24/21 23:14 Last Admin: 01/24/21 23:53 Dose: 200 mls/hr Documented by: Lactated Ringer's (Ringers, Lactated) 1,000 mls @ 75 mls/hr IV ASDIRECTED [facility] Last Admin: 01/24/21 23:46 Dose: 75 mls/hr Documented by: Influenza Virus Vaccine (Pharmacy To Dose - Influenza Vaccine) 1 each IM ONETIME ONE Stop: 01/25/21 09:01 Influenza Virus Vaccine (Flu Vacc Le0018-24(65yr Up)/Pf 240 Mcg/0.7 Ml Syringe) 240 mcg IM .ONCE ONE Stop: 01/25/21 09:01 Ondansetron HCl (Ondansetron 4 Mg/2 Ml Sdv) 4 mg IVPUSH ONETIME ONE Stop: 01/24/21 19:30 Last Admin: 01/24/21 19:44 Dose: Not Given Documented by: Potassium Chloride (Potassium Chloride 20 Meq Tab.Er) 40 meq PO ONETIME ONE Stop: 01/24/21 21:59 Last Admin: 01/24/21 23:41 Dose: 40 meq Documented by: - Exam Quality Assessment: Supplemental Oxygen General: Alert, Oriented HEENT: Pupils Equal Lungs: Clear to Auscultation, Normal Respiratory Effort Cardiovascular: Regular Rate, Regular Rhythm GI/Abdominal Exam: Normal Bowel Sounds, Soft, Non-Tender Extremities: Normal Inspection, Normal Range of Motion - Patient Data Lab Results Last 24 hrs: Laboratory Results - last 24 hr 01/24/21 01/24/21 01/24/21 Range/Units 19:41 19:41 19:41 WBC 21.29 H (4.0-11.0) K/uL RBC 3.44 L (4.30-5.90) M/uL Hgb 11.3 L (12.0-16.0) g/dL Hct 32.9 L (36.0-46.0) % MCV 95.6 (80.0-98.0) fL MCH 32.8 H (27.0-32.0) pg MCHC 34.3 (31.0-37.0) g/dL RDW Std Deviation 49.0 (28.0-62.0) fl RDW Coeff of Maryann 14 (11.0-15.0) % Plt Count 351 (150-400) K/uL MPV 8.50 (7.40-12.00) fL Neut % (Auto) 83.0 H (48.0-80.0) % Lymph % (Auto) 8.4 L (16.0-40.0) % [place] % (Auto) 7.9 (0.0-15.0) % Eos % (Auto) 0.6 (0.0-7.0) % Baso % (Auto) 0.1 (0.0-1.5) % Neut # (Auto) 17.7 H (1.4-5.7) K/uL Lymph # (Auto) 1.8 (0.6-2.4) K/uL [place] # (Auto) 1.7 H (0.0-0.8) K/uL Eos # (Auto) 0.1 (0.0-0.7) K/uL Baso # (Auto) 0.0 (0.0-0.1) K/uL Nucleated RBC % 0.0 /100WBC Nucleated RBCs # 0 K/uL Sodium 131 L (136-145) mmol/L Potassium 3.3 L (3.5-5.1) mmol/L Chloride 94 L (98-107) mmol/L Carbon Dioxide 26.5 (21.0-32.0) mmol/L BUN 17 (7.0-18.0) mg/dL Creatinine 0.8 (0.6-1.0) mg/dL Est Cr Clr Drug Dosing 39.50 mL/min Estimated GFR (MDRD) > 60.0 ml/min Glucose 182 H (74-106) mg/dL Lactic Acid (0.4-2.0) mmol/L Calcium 7.8 L (8.5-10.1) mg/dL Phosphorus (2.6-4.7) mg/dL Magnesium (1.8-2.4) mg/dL Total Bilirubin 1.0 (0.2-1.0) mg/dL AST 36 (15-37) IU/L ALT 44 (14-63) IU/L Alkaline Phosphatase 74 (46-116) U/L Troponin I < 0.050 (0.000-0.056) ng/mL B-Natriuretic Peptide (<100) PG/ML Total Protein 6.2 L (6.4-8.2) g/dL Albumin 2.5 L (3.4-5.0) g/dL Globulin 3.7 (2.6-4.0) g/dL Albumin/Globulin Ratio 0.7 L (0.9-1.6) SARS-CoV-2 RNA (ENEIDA) NEGATIVE (NEGATIVE) 01/24/21 01/24/21 01/25/21 Range/Units 19:41 20:22 05:30 WBC 16.12 H (4.0-11.0) K/uL RBC 3.18 L (4.30-5.90) M/uL Hgb 10.5 L (12.0-16.0) g/dL Hct 30.8 L (36.0-46.0) % MCV 96.9 (80.0-98.0) fL MCH 33.0 H (27.0-32.0) pg MCHC 34.1 (31.0-37.0) g/dL RDW Std Deviation 48.8 (28.0-62.0) fl RDW Coeff of Maryann 14 (11.0-15.0) % Plt Count 326 (150-400) K/uL MPV 8.80 (7.40-12.00) fL Neut % (Auto) 91.4 H (48.0-80.0) % Lymph % (Auto) 7.0 L (16.0-40.0) % [place] % (Auto) 1.5 (0.0-15.0) % Eos % (Auto) 0.0 (0.0-7.0) % Baso % (Auto) 0.1 (0.0-1.5) % Neut # (Auto) 14.7 H (1.4-5.7) K/uL Lymph # (Auto) 1.1 (0.6-2.4) K/uL [place] # (Auto) 0.2 (0.0-0.8) K/uL Eos # (Auto) 0.0 (0.0-0.7) K/uL Baso # (Auto) 0.0 (0.0-0.1) K/uL Nucleated RBC % 0.0 /100WBC Nucleated RBCs # 0 K/uL Sodium (136-145) mmol/L Potassium (3.5-5.1) mmol/L Chloride (98-107) mmol/L Carbon Dioxide (21.0-32.0) mmol/L BUN (7.0-18.0) mg/dL Creatinine (0.6-1.0) mg/dL Est Cr Clr Drug Dosing mL/min Estimated GFR (MDRD) ml/min Glucose (74-106) mg/dL Lactic Acid 1.1 (0.4-2.0) mmol/L Calcium (8.5-10.1) mg/dL Phosphorus (2.6-4.7) mg/dL Magnesium (1.8-2.4) mg/dL Total Bilirubin (0.2-1.0) mg/dL AST (15-37) IU/L ALT (14-63) IU/L Alkaline Phosphatase (46-116) U/L Troponin I (0.000-0.056) ng/mL B-Natriuretic Peptide 70 (<100) PG/ML Total Protein (6.4-8.2) g/dL Albumin (3.4-5.0) g/dL Globulin (2.6-4.0) g/dL Albumin/Globulin Ratio (0.9-1.6) SARS-CoV-2 RNA (ENEIDA) (NEGATIVE) 01/25/21 Range/Units 05:30 WBC (4.0-11.0) K/uL RBC (4.30-5.90) M/uL Hgb (12.0-16.0) g/dL Hct (36.0-46.0) % MCV (80.0-98.0) fL MCH (27.0-32.0) pg MCHC (31.0-37.0) g/dL RDW Std Deviation (28.0-62.0) fl RDW Coeff of Maryann (11.0-15.0) % Plt Count (150-400) K/uL MPV (7.40-12.00) fL Neut % (Auto) (48.0-80.0) % Lymph % (Auto) (16.0-40.0) % [place] % (Auto) (0.0-15.0) % Eos % (Auto) (0.0-7.0) % Baso % (Auto) (0.0-1.5) % Neut # (Auto) (1.4-5.7) K/uL Lymph # (Auto) (0.6-2.4) K/uL [place] # (Auto) (0.0-0.8) K/uL Eos # (Auto) (0.0-0.7) K/uL Baso # (Auto) (0.0-0.1) K/uL Nucleated RBC % /100WBC Nucleated RBCs # K/uL Sodium 135 L (136-145) mmol/L Potassium 4.4 (3.5-5.1) mmol/L Chloride 100 (98-107) mmol/L Carbon Dioxide 26.4 (21.0-32.0) mmol/L BUN 14 (7.0-18.0) mg/dL Creatinine 0.7 (0.6-1.0) mg/dL Est Cr Clr Drug Dosing 45.14 mL/min Estimated GFR (MDRD) > 60.0 ml/min Glucose 189 H (74-106) mg/dL Lactic Acid (0.4-2.0) mmol/L Calcium 8.2 L (8.5-10.1) mg/dL Phosphorus 3.5 (2.6-4.7) mg/dL Magnesium 2.1 (1.8-2.4) mg/dL Total Bilirubin (0.2-1.0) mg/dL AST (15-37) IU/L ALT (14-63) IU/L Alkaline Phosphatase (46-116) U/L Troponin I (0.000-0.056) ng/mL B-Natriuretic Peptide (<100) PG/ML Total Protein (6.4-8.2) g/dL Albumin (3.4-5.0) g/dL Globulin (2.6-4.0) g/dL Albumin/Globulin Ratio (0.9-1.6) SARS-CoV-2 RNA (ENEIDA) (NEGATIVE) Result Diagrams: 01/25/21 05:30 01/25/21 05:30 Maurilio Results Last 24 hrs: Microbiology 01/24/21 20:15 Anaerobic Blood Culture - Final Blood - Venous 01/24/21 19:41 Influenza Type A Antigen Screen - Final Nasopharyngeal Swab NEGATIVE INFLUENZA A VIRUS AG REFERENCE RANGE: NEGATIVE Influenza Type B Antigen Screen - Final NEGATIVE INFLUENZA B VIRUS AG REFERENCE RANGE: NEGATIVE Sepsis Event Note - Evaluation Sepsis Screening Result: No Definite Risk - Focused Exam Vital Signs: Vital Signs Temp Pulse Pulse Resp BP BP Pulse Ox 01/25/21 13:00 36.8 C 84 16 114/65 94 L 01/25/21 10:02 74 122/48 L 01/25/21 09:00 36.8 C 83 18 115/67 94 L 01/25/21 05:11 36.1 C 78 18 115/59 L 97 - Problem List & Annotations (1) Sepsis SNOMED Code(s): 49399330 Code(s): A41.9 - SEPSIS, UNSPECIFIED ORGANISM Status: Acute Current Visit: Yes (2) Pneumonia SNOMED Code(s): 747422387 Code(s): J18.9 - PNEUMONIA, UNSPECIFIED ORGANISM Status: Acute Current Visit: Yes (3) Respiratory failure with hypoxia SNOMED Code(s): 56973493976554457 Code(s): J96.91 - RESPIRATORY FAILURE, UNSPECIFIED WITH HYPOXIA Status: Acute Current Visit: Yes (4) Atrial fibrillation SNOMED Code(s): 59992379 Code(s): I48.91 - UNSPECIFIED ATRIAL FIBRILLATION Status: Acute Current Visit: No (5) GERD (gastroesophageal reflux disease) SNOMED Code(s): 979878107 Code(s): K21.9 - GASTRO-ESOPHAGEAL REFLUX DISEASE WITHOUT ESOPHAGITIS Status: Acute Current Visit: No (6) Lower extremity edema SNOMED Code(s): 931221534 Code(s): R60.0 - LOCALIZED EDEMA Status: Acute Current Visit: No - Problem List Review Problem List Initiated/Reviewed/Updated: Yes - My Orders Last 24 Hours: My Active Orders 01/24/21 21:58 Ambulate [RC] ASDIRECTED Oxygen Therapy [RC] PRN VTE/DVT Education [RC] PER UNIT ROUTINE Vital Signs [RC] Q4H Albuterol/Ipratropium [DuoNeb 3.0-0.5 MG/3 ML] 3 ml NEB Q4HRRT PRN 01/24/21 21:59 Antiembolic Devices [RC] PER UNIT ROUTINE Sequential Compression Device [OM.PC] Per Unit Routine 01/24/21 22:00 RT Aerosol Therapy [RC] ASDIRECTED Enoxaparin [Lovenox] 40 mg SUBCUT Q24H Pantoprazole [ProTONIX IV] 40 mg IV DAILY 01/24/21 22:54 Vaccine to be Administered/Admin Charge [RC] ASDIRECTED 01/24/21 23:00 Ondansetron [Zofran] 4 mg IVPUSH Q4H PRN 01/24/21 23:54 guaiFENesin [Robitussin] 100 mg PO Q4H PRN 01/25/21 00:31 Communication Order [RC] PER UNIT ROUTINE 01/25/21 01:01 Resuscitation Status Routine 01/25/21 05:00 Piperacillin/Tazobactam [Piperacil-Tazobact] 3.375 gm Sodium Chloride 0.9% [Normal Saline] 50 ml IV Q8H 01/25/21 Breakfast Heart Healthy Diet [DIET] 01/25/21 09:00 Aspirin [Halfprin] 81 mg PO DAILY Citalopram [Celexa] 40 mg PO DAILY Folic Acid 1 mg PO DAILY Omeprazole 20 mg PO DAILY PRN Sotalol [Betapace] 120 mg PO BID Spironolactone [Aldactone] 50 mg PO DAILY atorvaSTATin [Lipitor] 10 mg PO DAILY 01/25/21 11:02 SCOTT Bandage [Elastic Wrap] [OM.PC] Routine 01/25/21 15:16 PT Evaluation and Treatment [CONS] Routine - Plan Plan:: 85-year-old female admitted for sepsis secondary to pneumonia Continue broad-spectrum antibiotics including IV vancomycin and IV Zosyn Follow-up on blood cultures Continue oxygenation via nasal cannula, wean off as tolerated Resume home meds as tolerated stop IV fluids, SCOTT wrap for legs Continue to monitor closely X-ray of the foot noted no acute fracture PT consult to assess for safe ambulation
[2021-01-25] MEDS: Enoxaparin 40 MG/0.4 ML Syringe SUBCUT SCH (21:27)
[2021-01-25] MEDS: VANCOmycin 1.25 GM/250 ML 250 ML IV SCH (21:55)
[2021-01-26] MEDS: Piperacillin/Tazobactam 3.375 GM in Sodium Chloride 0.9% 50 ML IV SCH ×3 (04:26→21:18)
[2021-01-26] MEDS: guaiFENesin 100 MG/5 ML Soln 5 ML UD Cup PO PRN ×3 (04:36→21:19)
[2021-01-26] MEDS: Folic Acid 1 MG Tab PO SCH (08:40)
[2021-01-26] MEDS: Pantoprazole 40 MG Vial IV SCH (08:40)
[2021-01-26] MEDS: Citalopram 20 MG Tab PO SCH (08:40)
[2021-01-26] MEDS: Spironolactone 25 MG Tab PO SCH (08:41)
[2021-01-26] MEDS: Aspirin 81 MG Tab.EC PO SCH (08:41)
[2021-01-26] MEDS: atorvaSTATin 10 MG Tab PO SCH (08:41)
[2021-01-26] MEDS: Sotalol 80 MG Tab PO SCH (08:42)
[2021-01-26 09:50] LABS: CARBON DIOXIDE,CO2 28.4 mmol/L (21.0-32.0); POTASSIUM,K 3.8 mmol/L (3.5-5.1)
--- NOTE | 2021-01-26 13:54 | PCM.PN ---
- General Info Date of Service: 01/26/21 Admission Dx/Problem (Free Text): Admission Diagnosis/Problem Admission Diagnosis/Problem Pneumonia Subjective Update: Patient seen and examined at bedside, currently on recliner chair , states that she feels much better today. - Review of Systems General: Denies: Weakness, Fatigue, Malaise Pulmonary: Denies: Shortness of Breath Cardiovascular: Denies: Chest Pain, Palpitations, Dyspnea on Exertion Gastrointestinal: Denies: Abdominal Pain, Constipation, Decreased Appetite Genitourinary: Denies: Dysuria, Frequency, Burning Musculoskeletal: Denies: Neck Pain, Shoulder Pain, Arm Pain Skin: Denies: Cyanosis, Jaundice, Mottled - Patient Data Vitals - Most Recent: Last Vital Signs Temp 37.2 C 01/26/21 12:00 Pulse 68 01/26/21 12:00 Resp 18 01/26/21 12:00 BP 118/39 L 01/26/21 12:00 Pulse Ox 95 01/26/21 12:00 Weight - Most Recent: 89.074 kg I&O - Last 24 Hours: Intake & Output 01/25/21 01/26/21 01/26/21 22:59 06:59 14:59 Intake Total 600 Output Total 1700 Balance -1100 Lab Results Last 24 Hours: Laboratory Results - last 24 hr 01/26/21 01/26/21 Range/Units 09:17 09:17 WBC 19.27 H (4.0-11.0) K/uL RBC 3.53 L (4.30-5.90) M/uL Hgb 11.5 L (12.0-16.0) g/dL Hct 34.2 L (36.0-46.0) % MCV 96.9 (80.0-98.0) fL MCH 32.6 H (27.0-32.0) pg MCHC 33.6 (31.0-37.0) g/dL RDW Std Deviation 49.8 (28.0-62.0) fl RDW Coeff of Maryann 14 (11.0-15.0) % Plt Count 494 H (150-400) K/uL MPV 8.70 (7.40-12.00) fL Neut % (Auto) 82.6 H (48.0-80.0) % Lymph % (Auto) 13.5 L (16.0-40.0) % [place] % (Auto) 3.5 (0.0-15.0) % Eos % (Auto) 0.3 (0.0-7.0) % Baso % (Auto) 0.1 (0.0-1.5) % Neut # (Auto) 15.9 H (1.4-5.7) K/uL Lymph # (Auto) 2.6 H (0.6-2.4) K/uL [place] # (Auto) 0.7 (0.0-0.8) K/uL Eos # (Auto) 0.1 (0.0-0.7) K/uL Baso # (Auto) 0.0 (0.0-0.1) K/uL Nucleated RBC % 0.0 /100WBC Nucleated RBCs # 0 K/uL Sodium 137 (136-145) mmol/L Potassium 3.8 (3.5-5.1) mmol/L Chloride 100 (98-107) mmol/L Carbon Dioxide 28.4 (21.0-32.0) mmol/L BUN 15 (7.0-18.0) mg/dL Creatinine 0.9 (0.6-1.0) mg/dL Est Cr Clr Drug Dosing 35.11 mL/min Estimated GFR (MDRD) 59.7 ml/min Glucose 147 H (74-106) mg/dL Calcium 8.5 (8.5-10.1) mg/dL Total Bilirubin 0.5 (0.2-1.0) mg/dL AST 38 H (15-37) IU/L ALT 53 (14-63) IU/L Alkaline Phosphatase 66 (46-116) U/L Total Protein 6.4 (6.4-8.2) g/dL Albumin 2.4 L (3.4-5.0) g/dL Globulin 4.0 (2.6-4.0) g/dL Albumin/Globulin Ratio 0.6 L (0.9-1.6) Maurilio Results Last 24 Hours: Microbiology 01/24/21 20:22 Aerobic Blood Culture - Preliminary Blood - Venous - Lab Draw NO GROWTH AFTER 1 DAY Anaerobic Blood Culture - Preliminary NO GROWTH AFTER 1 DAY 01/24/21 20:15 Aerobic Blood Culture - Preliminary Blood - Venous NO GROWTH AFTER 1 DAY Anaerobic Blood Culture - Final Med Orders - Current: Current Medications Albuterol/Ipratropium (Albuterol/Ipratropium 3.0-0.5 Mg/3 Ml Neb Soln) 3 ml NEB Q4HRRT PRN PRN Reason: Shortness Of Breath/wheezing Last Admin: 01/25/21 17:11 Dose: 3 ml Documented by: Aspirin (Aspirin 81 Mg Tab.Ec) 81 mg PO DAILY [facility] S[facility] TO [facility] Last Admin: 01/26/21 08:41 Dose: 81 mg Documented by: Atorvastatin Calcium (Atorvastatin 10 Mg Tab) 10 mg PO DAILY [facility] TO [facility] Last Admin: 01/26/21 08:41 Dose: 10 mg Documented by: Citalopram Hydrobromide (Citalopram 20 Mg Tab) 40 mg PO DAILY [facility] TO [facility] Last Admin: 01/26/21 08:40 Dose: 40 mg Documented by: Enoxaparin Sodium (Enoxaparin 40 Mg/0.4 Ml Syringe) 40 mg SUBCUT Q24H [facility] Last Admin: 01/25/21 21:27 Dose: 40 mg Documented by: Folic Acid (Folic Acid 1 Mg Tab) 1 mg PO DAILY [facility] Last Admin: 01/26/21 08:40 Dose: 1 mg Documented by: Guaifenesin (Guaifenesin 100 Mg/5 Ml Soln 5 Ml Ud Cup) 100 mg PO Q4H PRN PRN Reason: Cough Last Admin: 01/26/21 08:42 Dose: 100 mg Documented by: Vancomycin HCl (Vancomycin 1.25 Gm/250 Ml) 250 mls @ 250 mls/hr IV Q24H [facility] Last Admin: 01/25/21 21:55 Dose: 250 mls/hr Documented by: Piperacillin Sod/Tazobactam (Sod 3.375 gm/ Sodium Chloride) 50 mls @ 100 mls/hr IV Q8H [facility] Last Admin: 01/26/21 13:33 Dose: 100 mls/hr Documented by: Pantoprazole Sodium 40 mg/ (Sodium Chloride) 10 mls @ 300 mls/hr IV DAILY [facility] TO [facility] Influenza Virus Vaccine (Flu Vacc [id number](65yr Up)/Pf 240 Mcg/0.7 Ml Syringe) 240 mcg IM .ONCE ONE Stop: 01/27/21 12:01 Omeprazole (Omeprazole 20 Mg Cap.Cr) 20 mg PO DAILY PRN PRN Reason: Heartburn Ondansetron HCl (Ondansetron 4 Mg/2 Ml Sdv) 4 mg IVPUSH Q4H PRN PRN Reason: Nausea/Vomiting Sodium Chloride (Sodium Chloride 0.9% 10 Ml Syringe) 10 ml FLUSH ASDIRECTED PRN PRN Reason: Keep Vein Open Sodium Chloride (Sodium Chloride 0.9% 2.5 Ml Syringe) 2.5 ml FLUSH ASDIRECTED PRN PRN Reason: Keep Vein Open Sotalol HCl (Sotalol 80 Mg Tab) 120 mg PO DAILY ANTONIETA Spironolactone (Spironolactone 25 Mg Tab) 50 mg PO DAILY [facility] TO [facility] Last Admin: 01/26/21 08:41 Dose: 50 mg Documented by: Vancomycin HCl (Pharmacy To Dose - Vancomycin) 1 dose .XX ASDIRECTED [facility] TO [facility] Discontinued Medications Acetaminophen (Acetaminophen 325 Mg Tab) 650 mg PO NOW ONE Stop: 01/24/21 20:06 Last Admin: 01/24/21 21:18 Dose: 650 mg Documented by: Albuterol/Ipratropium (Albuterol/Ipratropium 3.0-0.5 Mg/3 Ml Neb Soln) 9 ml NEB ONETIME ONE Stop: 01/24/21 19:20 Last Admin: 01/24/21 19:33 Dose: 9 ml Documented by: Dexamethasone (Dexamethasone 10 Mg/Ml Sdv) 10 mg IVPUSH ONETIME ONE Stop: 01/24/21 19:20 Last Admin: 01/24/21 19:30 Dose: 10 mg Documented by: Furosemide (Furosemide 20 Mg Tab) 40 mg PO DAILY PRN PRN Reason: Edema Piperacillin Sod/Tazobactam (Sod 4.5 gm/ Sodium Chloride) 100 mls @ 100 mls/hr IV ONETIME ONE Stop: 01/24/21 21:35 Last Admin: 01/24/21 21:19 Dose: 100 mls/hr Documented by: Vancomycin HCl (Vancomycin 2 Gm/400 Ml) 400 mls @ 200 mls/hr IV ONETIME ONE Stop: 01/24/21 23:14 Last Admin: 01/24/21 23:53 Dose: 200 mls/hr Documented by: Lactated Ringer's (Ringers, Lactated) 1,000 mls @ 75 mls/hr IV ASDIRECTED [facility]END[facility]ALE TO [facility] Last Admin: 01/24/21 23:46 Dose: 75 mls/hr Documented by: Influenza Virus Vaccine (Pharmacy To Dose - Influenza Vaccine) 1 each IM ONETIME ONE Stop: 01/25/21 09:01 Ondansetron HCl (Ondansetron 4 Mg/2 Ml Sdv) 4 mg IVPUSH ONETIME ONE Stop: 01/24/21 19:30 Last Admin: 01/24/21 19:44 Dose: Not Given Documented by: Pantoprazole Sodium (Pantoprazole 40 Mg Vial) 40 mg IV DAILY [facility] TO [facility] Last Admin: 01/26/21 08:40 Dose: 40 mg Documented by: Potassium Chloride (Potassium Chloride 20 Meq Tab.Er) 40 meq PO ONETIME ONE Stop: 01/24/21 21:59 Last Admin: 01/24/21 23:41 Dose: 40 meq Documented by: Sotalol HCl (Sotalol 80 Mg Tab) 120 mg PO BID PENDING SALE TO [facility] Last Admin: 01/26/21 08:42 Dose: 120 mg Documented by: - Exam Quality Assessment: No: Supplemental Oxygen General: Alert, Oriented, Cooperative Lungs: Clear to Auscultation, Normal Respiratory Effort Cardiovascular: Regular Rate, Regular Rhythm GI/Abdominal Exam: Normal Bowel Sounds, Soft, Non-Tender Back Exam: Normal Inspection Extremities: Pedal Edema (chronic). No: Joint Swelling, Leg Pain, Mottled, Pallor, Redness - Patient Data Lab Results Last 24 hrs: Laboratory Results - last 24 hr 01/26/21 01/26/21 Range/Units 09:17 09:17 WBC 19.27 H (4.0-11.0) K/uL RBC 3.53 L (4.30-5.90) M/uL Hgb 11.5 L (12.0-16.0) g/dL Hct 34.2 L (36.0-46.0) % MCV 96.9 (80.0-98.0) fL MCH 32.6 H (27.0-32.0) pg MCHC 33.6 (31.0-37.0) g/dL RDW Std Deviation 49.8 (28.0-62.0) fl RDW Coeff of Maryann 14 (11.0-15.0) % Plt Count 494 H (150-400) K/uL MPV 8.70 (7.40-12.00) fL Neut % (Auto) 82.6 H (48.0-80.0) % Lymph % (Auto) 13.5 L (16.0-40.0) % [place] % (Auto) 3.5 (0.0-15.0) % Eos % (Auto) 0.3 (0.0-7.0) % Baso % (Auto) 0.1 (0.0-1.5) % Neut # (Auto) 15.9 H (1.4-5.7) K/uL Lymph # (Auto) 2.6 H (0.6-2.4) K/uL [place] # (Auto) 0.7 (0.0-0.8) K/uL Eos # (Auto) 0.1 (0.0-0.7) K/uL Baso # (Auto) 0.0 (0.0-0.1) K/uL Nucleated RBC % 0.0 /100WBC Nucleated RBCs # 0 K/uL Sodium 137 (136-145) mmol/L Potassium 3.8 (3.5-5.1) mmol/L Chloride 100 (98-107) mmol/L Carbon Dioxide 28.4 (21.0-32.0) mmol/L BUN 15 (7.0-18.0) mg/dL Creatinine 0.9 (0.6-1.0) mg/dL Est Cr Clr Drug Dosing 35.11 mL/min Estimated GFR (MDRD) 59.7 ml/min Glucose 147 H (74-106) mg/dL Calcium 8.5 (8.5-10.1) mg/dL Total Bilirubin 0.5 (0.2-1.0) mg/dL AST 38 H (15-37) IU/L ALT 53 (14-63) IU/L Alkaline Phosphatase 66 (46-116) U/L Total Protein 6.4 (6.4-8.2) g/dL Albumin 2.4 L (3.4-5.0) g/dL Globulin 4.0 (2.6-4.0) g/dL Albumin/Globulin Ratio 0.6 L (0.9-1.6) Result Diagrams: 01/26/21 09:17 01/26/21 09:17 Maurilio Results Last 24 hrs: Microbiology 01/24/21 20:22 Aerobic Blood Culture - Preliminary Blood - Venous - Lab Draw NO GROWTH AFTER 1 DAY Anaerobic Blood Culture - Preliminary NO GROWTH AFTER 1 DAY 01/24/21 20:15 Aerobic Blood Culture - Preliminary Blood - Venous NO GROWTH AFTER 1 DAY Anaerobic Blood Culture - Final Sepsis Event Note - Evaluation Sepsis Screening Result: No Definite Risk - Focused Exam Vital Signs: Vital Signs Temp Pulse Pulse Resp BP BP Pulse Ox 01/26/21 12:00 37.2 C 68 18 118/39 L 95 01/26/21 08:42 65 119/45 L 01/26/21 07:49 36.8 C 65 18 119/45 L 95 01/26/21 04:21 36.2 C 59 L 18 119/46 L 95 - Problem List & Annotations (1) Sepsis SNOMED Code(s): 23098506 Code(s): A41.9 - SEPSIS, UNSPECIFIED ORGANISM Status: Acute Current Visit: Yes (2) Pneumonia SNOMED Code(s): 844990393 Code(s): J18.9 - PNEUMONIA, UNSPECIFIED ORGANISM Status: Acute Current Visit: Yes (3) Respiratory failure with hypoxia SNOMED Code(s): 35857009206677256 Code(s): J96.91 - RESPIRATORY FAILURE, UNSPECIFIED WITH HYPOXIA Status: Acute Current Visit: Yes (4) Atrial fibrillation SNOMED Code(s): 52471734 Code(s): I48.91 - UNSPECIFIED ATRIAL FIBRILLATION Status: Acute Current Visit: No (5) GERD (gastroesophageal reflux disease) SNOMED Code(s): 479999062 Code(s): K21.9 - GASTRO-ESOPHAGEAL REFLUX DISEASE WITHOUT ESOPHAGITIS Status: Acute Current Visit: No (6) Lower extremity edema SNOMED Code(s): 190627385 Code(s): R60.0 - LOCALIZED EDEMA Status: Acute Current Visit: No - Problem List Review Problem List Initiated/Reviewed/Updated: Yes - My Orders Last 24 Hours: My Active Orders 01/25/21 15:16 PT Evaluation and Treatment [CONS] Routine 01/27/21 04:00 Daily Weight [Height and Weight] [RC] DAILY 01/27/21 09:00 Pantoprazole [ProTONIX IV] 40 mg Sodium Chloride 0.9% [Normal Saline] 10 ml IV DAILY Sotalol [Betapace] 120 mg PO DAILY 01/27/21 12:00 FLU Vacc [id number](65YR UP)/PF [Fluzone High-Dose Quad ] 240 mcg IM .ONCE ONE - Plan Plan:: 85-year-old female admitted for sepsis secondary to pneumonia Continue broad-spectrum antibiotics including IV vancomycin and IV Zosyn, WBC count has jumped up a little today but neutrophil count is improving, patient is off the oxygen showing clinical improvement Follow-up on blood cultures Continue oxygenation via nasal cannula, wean off as tolerated stop IV fluids, SCOTT wrap for legs Continue to monitor closely X-ray of the foot noted no acute fracture PT consult to assess for safe ambulation Will decrease sotalol to once a day as per patient she only takes it at night
[2021-01-26] MEDS: Enoxaparin 40 MG/0.4 ML Syringe SUBCUT SCH (21:19)
[2021-01-26] MEDS: VANCOmycin 1.25 GM/250 ML 250 ML IV SCH (22:11)
[2021-01-27] MEDS: Piperacillin/Tazobactam 3.375 GM in Sodium Chloride 0.9% 50 ML IV SCH (04:19)
[2021-01-27 06:40] LABS: BLOOD UREA NITROGEN,BUN 15 mg/dL (7.0-18.0); CARBON DIOXIDE,CO2 25.1 mmol/L (21.0-32.0); CHLORIDE,CL 102 mmol/L (98-107); GLUCOSE RANDOM 105 mg/dL (74-106); POTASSIUM,K 4.5 mmol/L (3.5-5.1); SODIUM,NA 137 mmol/L (136-145)
[2021-01-27] MEDS: Citalopram 20 MG Tab PO SCH (08:34)
[2021-01-27] MEDS: Aspirin 81 MG Tab.EC PO SCH (08:42)
[2021-01-27] MEDS: atorvaSTATin 10 MG Tab PO SCH (08:43)
[2021-01-27] MEDS: Spironolactone 25 MG Tab PO SCH (08:43)
[2021-01-27] MEDS ORDERED: Pantoprazole 40 MG in Sodium Chloride 0.9% 10 ML IV SCH (09:00)
[2021-01-27] MEDS ORDERED: Sotalol 80 MG Tab PO SCH (09:00)
[2021-01-27] MEDS: Folic Acid 1 MG Tab PO SCH (10:57)
[2021-01-27 12:24] VITALS: BP 116/49; PULSE 68
--- NOTE | 2021-01-27 12:33 | PCM.DCSUM1 ---
Discharge Summary - Hospital Course Diagnosis: Stroke: No - Discharge Data Discharge Disposition: Home, Self-Care 01 Condition: Good - Referral to Home Health Date of Face to Face Encounter: 01/27/21 Reason for Homebound Status: Patient is a fall risk needing to utilize a walker to ambulate safely Primary Care Physician: PCP None Skilled Need: Physical therapy strengthening due to weakness from recent hospitalization, gait instability and high fall risk - Discharge Diagnosis/Problem(s) (1) Sepsis SNOMED Code(s): 87378560 ICD Code: A41.9 - SEPSIS, UNSPECIFIED ORGANISM Status: Acute Current Visit: Yes (2) Pneumonia SNOMED Code(s): 813394446 ICD Code: J18.9 - PNEUMONIA, UNSPECIFIED ORGANISM Status: Acute Current Visit: Yes (3) Respiratory failure with hypoxia SNOMED Code(s): 64842248131573611 ICD Code: J96.91 - RESPIRATORY FAILURE, UNSPECIFIED WITH HYPOXIA Status: Acute Current Visit: Yes (4) Atrial fibrillation SNOMED Code(s): 67339241 ICD Code: I48.91 - UNSPECIFIED ATRIAL FIBRILLATION Status: Acute Current Visit: No (5) GERD (gastroesophageal reflux disease) SNOMED Code(s): 444843511 ICD Code: K21.9 - GASTRO-ESOPHAGEAL REFLUX DISEASE WITHOUT ESOPHAGITIS Status: Acute Current Visit: No (6) Lower extremity edema SNOMED Code(s): 074957817 ICD Code: R60.0 - LOCALIZED EDEMA Status: Acute Current Visit: No (7) Ambulatory dysfunction SNOMED Code(s): 651167525 ICD Code: R26.2 - DIFFICULTY IN WALKING, NOT ELSEWHERE CLASSIFIED Status: Acute Current Visit: Yes - Patient Summary/Data Consults: Consultations 01/25/21 15:16 PT Evaluation and Treatment [CONS] Routine 01/27/21 11:27 Consult to Home Health [CONS] Routine - Patient Instructions Diet: Heart Healthy Diet Activity: As Tolerated Driving: Do Not Drive Showering/Bathing: May Shower Notify Provider of: Fever, Increased Pain, Swelling and Redness, Drainage, Nausea and/or Vomiting - Discharge Plan *PRESCRIPTION DRUG MONITORING PROGRAM REVIEWED*: No *COPY OF PRESCRIPTION DRUG MONITORING REPORT IN PATIENT JAMI: No Prescriptions/Med Rec: levoFLOXacin [Levaquin] 750 mg PO DAILY #5 tab guaiFENesin [Robitussin] 100 mg PO Q6H PRN #1 bottle PRN Reason: Cough Home Medications: Home Meds Methotrexate 15 mg PO WEEKLY 05/29/14 [History] Spironolactone 50 mg PO DAILY 05/29/14 [History] Aspirin [Lo-Dose Aspirin EC] 81 mg PO DAILY 07/26/17 [History] Furosemide 40 mg PO DAILY PRN 07/26/17 [History] Omeprazole 20 mg PO ASDIRECTED PRN 07/26/17 [History] atorvaSTATin Calcium [Atorvastatin Calcium] 10 mg PO DAILY 07/26/17 [History] Albuterol Sulfate [Albuterol Sulfate HFA] 8.5 gm INH Q4H PRN #1 ea 01/15/21 [Rx] Folic Acid 1 mg PO DAILY 01/15/21 [History] Albuterol Sulfate 1 inh NEB TID PRN 01/24/21 [History] Citalopram Hydrobromide [Celexa] 40 mg PO DAILY 01/24/21 [History] Sotalol [Betapace] 120 mg PO DAILY tablet 01/27/21 [Rx] guaiFENesin [Robitussin] 100 mg PO Q6H PRN #1 bottle 01/27/21 [Rx] levoFLOXacin [Levaquin] 750 mg PO DAILY #5 tab 01/27/21 [Rx] Forms: ED Department Discharge Referrals: Shannan Ravi DO [Ordering Only Provider] - 02/04/21 9:30 am - Patient Data Vitals - Most Recent: Last Vital Signs Temp 37.1 C 01/27/21 12:00 Pulse 68 01/27/21 12:00 Resp 22 H 01/27/21 12:00 BP 116/49 L 01/27/21 12:00 Pulse Ox 94 L 01/27/21 12:00 Weight - Most Recent: 89.358 kg I&O - Last 24 hours: Intake & Output 01/26/21 01/27/21 01/27/21 22:59 06:59 14:59 Intake Total 1520 800 Output Total 1200 0 Balance 320 800 Lab Results - Last 24 hrs: Laboratory Results - last 24 hr 01/27/21 01/27/21 Range/Units 05:35 05:35 WBC 11.57 H (4.0-11.0) K/uL RBC 3.04 L (4.30-5.90) M/uL Hgb 9.9 L (12.0-16.0) g/dL Hct 29.5 L (36.0-46.0) % MCV 97.0 (80.0-98.0) fL MCH 32.6 H (27.0-32.0) pg MCHC 33.6 (31.0-37.0) g/dL RDW Std Deviation 50.2 (28.0-62.0) fl RDW Coeff of Maryann 15 (11.0-15.0) % Plt Count 377 (150-400) K/uL MPV 8.30 (7.40-12.00) fL Neut % (Auto) 66.8 (48.0-80.0) % Lymph % (Auto) 19.7 (16.0-40.0) % [place] % (Auto) 11.9 (0.0-15.0) % Eos % (Auto) 1.4 (0.0-7.0) % Baso % (Auto) 0.2 (0.0-1.5) % Neut # (Auto) 7.7 H (1.4-5.7) K/uL Lymph # (Auto) 2.3 (0.6-2.4) K/uL [place] # (Auto) 1.4 H (0.0-0.8) K/uL Eos # (Auto) 0.2 (0.0-0.7) K/uL Baso # (Auto) 0.0 (0.0-0.1) K/uL Nucleated RBC % 0.0 /100WBC Nucleated RBCs # 0 K/uL Sodium 137 (136-145) mmol/L Potassium 4.5 (3.5-5.1) mmol/L Chloride 102 (98-107) mmol/L Carbon Dioxide 25.1 (21.0-32.0) mmol/L BUN 15 (7.0-18.0) mg/dL Creatinine 0.8 (0.6-1.0) mg/dL Est Cr Clr Drug Dosing 39.50 mL/min Estimated GFR (MDRD) > 60.0 ml/min Glucose 105 (74-106) mg/dL Calcium 7.7 L (8.5-10.1) mg/dL Phosphorus 3.5 (2.6-4.7) mg/dL Magnesium 2.0 (1.8-2.4) mg/dL KEVAN Results - Last 24 hrs: Microbiology 01/24/21 20:22 Aerobic Blood Culture - Preliminary Blood - Venous - Lab Draw NO GROWTH AFTER 2 DAYS Anaerobic Blood Culture - Preliminary NO GROWTH AFTER 2 DAYS 01/24/21 20:15 Aerobic Blood Culture - Preliminary Blood - Venous NO GROWTH AFTER 2 DAYS Anaerobic Blood Culture - Final Med Orders - Current: Current Medications Albuterol/Ipratropium (Albuterol/Ipratropium 3.0-0.5 Mg/3 Ml Neb Soln) 3 ml NEB Q4HRRT PRN PRN Reason: Shortness Of Breath/wheezing Last Admin: 01/25/21 17:11 Dose: 3 ml Documented by: Aspirin (Aspirin 81 Mg Tab.Ec) 81 mg PO DAILY [facility] Last Admin: 01/27/21 08:42 Dose: 81 mg Documented by: Atorvastatin Calcium (Atorvastatin 10 Mg Tab) 10 mg PO DAILY [facility] Last Admin: 01/27/21 08:43 Dose: 10 mg Documented by: Citalopram Hydrobromide (Citalopram 20 Mg Tab) 40 mg PO DAILY [facility] Last Admin: 01/27/21 08:34 Dose: 40 mg Documented by: Enoxaparin Sodium (Enoxaparin 40 Mg/0.4 Ml Syringe) 40 mg SUBCUT Q24H [facility] Last Admin: 01/26/21 21:19 Dose: 40 mg Documented by: Folic Acid (Folic Acid 1 Mg Tab) 1 mg PO DAILY [facility] Last Admin: 01/27/21 10:57 Dose: 1 mg Documented by: Guaifenesin (Guaifenesin 100 Mg/5 Ml Soln 5 Ml Ud Cup) 100 mg PO Q4H PRN PRN Reason: Cough Last Admin: 01/26/21 21:19 Dose: 100 mg Documented by: Vancomycin HCl (Vancomycin 1.25 Gm/250 Ml) 250 mls @ 250 mls/hr IV Q24H [facility] Last Admin: 01/26/21 22:11 Dose: 250 mls/hr Documented by: Piperacillin Sod/Tazobactam (Sod 3.375 gm/ Sodium Chloride) 50 mls @ 100 mls/hr IV Q8H [facility] Last Admin: 01/27/21 04:19 Dose: 100 mls/hr Documented by: Pantoprazole Sodium 40 mg/ (Sodium Chloride) 10 mls @ 300 mls/hr IV DAILY [facility] Last Admin: 01/27/21 10:58 Dose: 300 mls/hr Documented by: Omeprazole (Omeprazole 20 Mg Cap.Cr) 20 mg PO DAILY PRN PRN Reason: Heartburn Ondansetron HCl (Ondansetron 4 Mg/2 Ml Sdv) 4 mg IVPUSH Q4H PRN PRN Reason: Nausea/Vomiting Sodium Chloride (Sodium Chloride 0.9% 10 Ml Syringe) 10 ml FLUSH ASDIRECTED PRN PRN Reason: Keep Vein Open Sodium Chloride (Sodium Chloride 0.9% 2.5 Ml Syringe) 2.5 ml FLUSH ASDIRECTED PRN PRN Reason: Keep Vein Open Sotalol HCl (Sotalol 80 Mg Tab) 120 mg PO DAILY [facility] Last Admin: 01/27/21 08:35 Dose: 120 mg Documented by: Spironolactone (Spironolactone 25 Mg Tab) 50 mg PO DAILY [facility] Last Admin: 01/27/21 08:43 Dose: 50 mg Documented by: Vancomycin HCl (Pharmacy To Dose - Vancomycin) 1 dose .XX ASDIRECTED ANTONIETA Discontinued Medications Acetaminophen (Acetaminophen 325 Mg Tab) 650 mg PO NOW ONE Stop: 01/24/21 20:06 Last Admin: 01/24/21 21:18 Dose: 650 mg Documented by: Albuterol/Ipratropium (Albuterol/Ipratropium 3.0-0.5 Mg/3 Ml Neb Soln) 9 ml NEB ONETIME ONE Stop: 01/24/21 19:20 Last Admin: 01/24/21 19:33 Dose: 9 ml Documented by: Dexamethasone (Dexamethasone 10 Mg/Ml Sdv) 10 mg IVPUSH ONETIME ONE Stop: 01/24/21 19:20 Last Admin: 01/24/21 19:30 Dose: 10 mg Documented by: Furosemide (Furosemide 20 Mg Tab) 40 mg PO DAILY PRN PRN Reason: Edema Piperacillin Sod/Tazobactam (Sod 4.5 gm/ Sodium Chloride) 100 mls @ 100 mls/hr IV ONETIME ONE Stop: 01/24/21 21:35 Last Admin: 01/24/21 21:19 Dose: 100 mls/hr Documented by: Vancomycin HCl (Vancomycin 2 Gm/400 Ml) 400 mls @ 200 mls/hr IV ONETIME ONE Stop: 01/24/21 23:14 Last Admin: 01/24/21 23:53 Dose: 200 mls/hr Documented by: Lactated Ringer's (Ringers, Lactated) 1,000 mls @ 75 mls/hr IV ASDIRECTED [facility] Last Admin: 01/24/21 23:46 Dose: 75 mls/hr Documented by: Influenza Virus Vaccine (Pharmacy To Dose - Influenza Vaccine) 1 each IM ONETIME ONE Stop: 01/25/21 09:01 Influenza Virus Vaccine (Flu Vacc [id number](65yr Up)/Pf 240 Mcg/0.7 Ml Syringe) 240 mcg IM .ONCE ONE Stop: 01/27/21 12:01 Ondansetron HCl (Ondansetron 4 Mg/2 Ml Sdv) 4 mg IVPUSH ONETIME ONE Stop: 01/24/21 19:30 Last Admin: 01/24/21 19:44 Dose: Not Given Documented by: Pantoprazole Sodium (Pantoprazole 40 Mg Vial) 40 mg IV DAILY [facility] Last Admin: 01/26/21 08:40 Dose: 40 mg Documented by: Potassium Chloride (Potassium Chloride 20 Meq Tab.Er) 40 meq PO ONETIME ONE Stop: 01/24/21 21:59 Last Admin: 01/24/21 23:41 Dose: 40 meq Documented by: Sotalol HCl (Sotalol 80 Mg Tab) 120 mg PO BID [facility] Last Admin: 01/26/21 08:42 Dose: 120 mg Documented by:
== END 2021-01-27 13:30 | disposition home health service (06) | DRG 871 ==
LOC: MW.ED 18:54 → MW.MS 20:54
PROVIDERS: ADMIT Student in an Organized Health Care Education/Training Program; ATTEND Student in an Organized Health Care Education/Training Program
DX: A41.89 Other specified sepsis (principal); J96.91 Respiratory failure, unspecified with hypoxia; R65.10 Systemic inflammatory response syndrome (SIRS) of non-infectious origin without acute organ dysfunction; J18.9 Pneumonia, unspecified organism; J96.01 Acute respiratory failure with hypoxia; I48.91 Unspecified atrial fibrillation; K21.9 Gastro-esophageal reflux disease without esophagitis; R26.2 Difficulty in walking, not elsewhere classified; E78.00 Pure hypercholesterolemia, unspecified; I10 Essential (primary) hypertension; M54.9 Dorsalgia, unspecified; Z20.822 Contact with and (suspected) exposure to COVID-19; F32.9 Major depressive disorder, single episode, unspecified; G89.29 Other chronic pain; M19.90 Unspecified osteoarthritis, unspecified site; E66.9 Obesity, unspecified; M06.9 Rheumatoid arthritis, unspecified; Z96.651 Presence of right artificial knee joint; Z88.2 Allergy status to sulfonamides; Z79.899 Other long term (current) drug therapy; Z98.51 Tubal ligation status; Z95.5 Presence of coronary angioplasty implant and graft; Z79.82 Long term (current) use of aspirin; Z68.37 Body mass index [BMI] 37.0-37.9, adult
CPT/HCPCS: 36415; 71045; 73630; 80053; 83605; 83880; 84484; 85025; 87040 ×2; 87804 ×2; 96374; 99291; J1100; U0002; 80048; 83735; 84100; 97161-GP; A9270-GY; C9113; J1650; J2543; J3370; J7120; J7620-GY

== ENCOUNTER 2021-07-02 17:22 | Emergency (ER) | payer MEDICARE, OTHER ==
[2021-07-02 19:15] VITALS: BP 128/74; PULSE 74
== END 2021-07-02 19:15 | disposition home or self-care (01) ==
LOC: MW.ED 17:22
DX: S40.012A Contusion of left shoulder, initial encounter (principal); S20.212A Contusion of left front wall of thorax, initial encounter; I48.91 Unspecified atrial fibrillation; E78.00 Pure hypercholesterolemia, unspecified; I10 Essential (primary) hypertension; K21.9 Gastro-esophageal reflux disease without esophagitis; M19.90 Unspecified osteoarthritis, unspecified site; E66.9 Obesity, unspecified; Z68.37 Body mass index [BMI] 37.0-37.9, adult; Z88.2 Allergy status to sulfonamides; Z79.82 Long term (current) use of aspirin; Z79.899 Other long term (current) drug therapy; W18.30XA Fall on same level, unspecified, initial encounter
CPT/HCPCS: 71046; 71046-26; 73030-26-LT; 73030-LT; 99282; 99283-25

== ENCOUNTER 2021-11-11 11:09 | Emergency (ER) | payer MEDICARE, OTHER ==
[2021-11-11 13:15] LABS: CARBON DIOXIDE,CO2 28.5 mmol/L (21.0-32.0); POTASSIUM,K 3.5 mmol/L (3.5-5.1)
[2021-11-11] MEDS ORDERED: Propofol 200 MG/20 ML SDV ONE (14:05)
[2021-11-11] MEDS ORDERED: fentaNYL 100 MCG/2 ML SDV ONE (14:05)
[2021-11-11] MEDS ORDERED: Dexmedetomidine 200 MCG/2 ML SDV ONE (14:05)
[2021-11-11 16:17] VITALS: BP 119/50; PULSE 61
== END 2021-11-11 16:18 | disposition home or self-care (01) ==
LOC: MW.ED 11:09
DX: S52.572A Other intraarticular fracture of lower end of left radius, initial encounter for closed fracture (principal); S52.615A Nondisplaced fracture of left ulna styloid process, initial encounter for closed fracture; I48.91 Unspecified atrial fibrillation; E78.00 Pure hypercholesterolemia, unspecified; I10 Essential (primary) hypertension; K21.9 Gastro-esophageal reflux disease without esophagitis; E66.9 Obesity, unspecified; Z88.2 Allergy status to sulfonamides; Z79.82 Long term (current) use of aspirin; Z79.899 Other long term (current) drug therapy; Z68.35 Body mass index [BMI] 35.0-35.9, adult; W18.30XA Fall on same level, unspecified, initial encounter
CPT/HCPCS: 25605; 36415; 70450; 72125; 73100; 73110; 80053; 82550; 85025; 93005; 99152; 99284; J2704; J3010; 01820; 29125; 93010; 99100

== ENCOUNTER 2024-02-17 13:52 | Emergency (ER) | payer MEDICARE, OTHER ==
[2024-02-17 15:01] LABS: BASOPHILS ABSOLUTE AUTO 0.05 K/uL (0.00-0.20); BASOPHILS PERCENT AUTO 0.6 % (0.0-1.0); EOSINOPHILS ABSOLUTE AUTO 0.08 K/uL (0.00-0.45); HEMATOCRIT 26.8 % (37.0-47.0); HEMOGLOBIN 8.2 g/dL (12.0-16.0); IMMATURE GRAN ABSOLUTE AUTO 0.03 K/uL (0.00-0.05); IMMATURE GRAN PERCENT AUTO 0.4 % (0.0-0.4); LYMPHOCYTES ABSOLUTE AUTO 0.71 K/uL (1.00-4.80); MEAN CORPUSCULAR HEMOGLOBIN 25.4 pg (28.0-32.0); MEAN CORPUSCULAR HGB CONC 30.6 g/dL (32.0-36.0); MEAN PLATELET VOLUME 8.2 fL (9.4-12.3); MONOCYTES ABSOLUTE AUTO 0.56 K/uL (0.00-0.80); MONOCYTES PERCENT AUTO 7.1 % (0.0-8.0); NEUTROPHILS ABSOLUTE AUTO 6.43 K/uL (1.80-7.70); NEUTROPHILS PERCENT AUTO 81.9 % (41.0-71.0); PLATELET COUNT,PLT 218 K/uL (150-400); RED BLOOD CELL COUNT 3.23 M/uL (4.10-5.30); WHITE BLOOD CELL COUNT,WBC 7.86 K/uL (3.9-11.3)
[2024-02-17 15:23] LABS: A/G RATIO 0.9 (0.9-1.6); ALBUMIN 2.9 g/dL (3.4-5.0); BILIRUBIN TOTAL 0.4 mg/dL (0.2-1.0); CALCIUM 8.8 mg/dL (8.5-10.1); CARBON DIOXIDE,CO2 25.4 mmol/L (21.0-32.0); CREATININE 1.2 mg/dL (0.6-1.0); EST CRCL DRUG DOSING (CG) 24.92 mL/min; POTASSIUM,K 3.8 mmol/L (3.5-5.1); PROTEIN TOTAL,TP 6.2 g/dL (6.4-8.2)
[2024-02-17 17:09] LABS: BILIRUBIN,URINE NEGATIVE (NEGATIVE); COLOR,URINE YELLOW; GLUCOSE,URINE NEGATIVE (NEGATIVE); KETONES,URINE NEGATIVE (NEGATIVE); LEUKOCYTE ESTERASE,URINE MODERATE (NEGATIVE); NITRITE,URINE NEGATIVE (NEGATIVE); OCCULT BLOOD,URINE SMALL (NEGATIVE); PROTEIN,URINE NEGATIVE (NEGATIVE); UROBILINOGEN,URINE 0.2 EU/dL (<2.0)
[2024-02-17 18:21] VITALS: BP 124/47; PULSE 75
[2024-02-17 18:23] LABS: APPEARANCE,URINE SLT CLOUDY; BACTERIA,URINE 1+ (NEGATIVE); EPITHELIAL CELLS,URINE OCCASIONAL (NONE-FEW); RBC,URINE 0-2 (0-2/HPF)
== END 2024-02-17 18:20 | disposition home or self-care (01) ==
LOC: MW.ED 13:52
DX: I95.1 Orthostatic hypotension (principal); N30.01 Acute cystitis with hematuria; I48.91 Unspecified atrial fibrillation; E78.00 Pure hypercholesterolemia, unspecified; I10 Essential (primary) hypertension; K21.9 Gastro-esophageal reflux disease without esophagitis; M19.90 Unspecified osteoarthritis, unspecified site; E66.9 Obesity, unspecified; Z68.36 Body mass index [BMI] 36.0-36.9, adult; Z79.82 Long term (current) use of aspirin; Z79.899 Other long term (current) drug therapy; Z88.2 Allergy status to sulfonamides; Z75.8 Other problems related to medical facilities and other health care
CPT/HCPCS: 36415; 70450; 72125; 80053; 81001; 84484; 85025; 87086; 93005; 99285; J1642